=== PATIENT | male | born 1950 | race Caucasian/White ===

== ENCOUNTER 2017-02-07 08:17 | Day surgery (SDC) | payer MEDICARE, BC ==
[~2017-02-07] VITALS: Ht 190.5 cm; Wt 82.5 kg
[~2017-02-07 08:17] MED LIST: BUPR1FIL5 SL; CYAN10002 IJ; CYAN1TAB2 PO; OXYCODONE HCL PO
[2017-02-07 08:50] VITALS: BP 130/73
[2017-02-07] MEDS ORDERED: SODIUM CHLORIDE 0.9% 1,000 ML IV SCH (08:52)
[2017-02-07] MEDS ORDERED: FLUMAZENIL 0.1 MG/1 ML, 5ML ONE (09:02)
[2017-02-07] MEDS ORDERED: FENTANYL PF 100 MCG/2ML ONE (09:02)
[2017-02-07] MEDS ORDERED: NALOXONE 1 MG/ML, 2ML ONE (09:02)
[2017-02-07] MEDS ORDERED: MIDAZOLAM 1 MG/ML, 5ML ONE (09:02)
[2017-02-07] MEDS ORDERED: LIDOCAINE 1%, 20ML ONE (09:24)
[2017-02-07 10:23] LABS: DIFF TOTAL CELLS COUNTED 100 CELL DIFF
[2017-02-07 10:27] LABS: ANISOCYTOSIS 1+; VERIFY COUNTS? YES
[2017-02-07 10:28] LABS: POIKILOCYTOSIS 1+
== END 2017-02-07 11:10 ==
LOC: OUT 08:17
PROVIDERS: ATTEND Internal Medicine Hematology & Oncology
DX: D61.818 Other pancytopenia (principal)
CPT/HCPCS: 36415; 38221; 77012; 85025; 85097; 88237; 88264; 88280; 88305; 88311; 88313; 99156; 99157; G0364; J2250; J3010; J3490; J7030; J2310

== ENCOUNTER → 2017-02-27 | Outpatient (CLI) | payer MEDICARE, BC ==
[2017-02-27 11:38] LABS: DIFF TOTAL CELLS COUNTED 100 CELL DIFF
[2017-02-27 11:48] LABS: ANISOCYTOSIS 1+; POIKILOCYTOSIS 1+; POLYCHROMASIA 1+; VERIFY COUNTS? YES
== END | disposition home or self-care (01) ==
LOC: LAB 10:51
PROVIDERS: ATTEND Internal Medicine Hematology & Oncology
DX: D51.1 Vitamin B12 deficiency anemia due to selective vitamin B12 malabsorption with proteinuria (principal); C79.51 Secondary malignant neoplasm of bone; D40.0 Neoplasm of uncertain behavior of prostate; R53.0 Neoplastic (malignant) related fatigue; C84.60 Anaplastic large cell lymphoma, ALK-positive, unspecified site; D61.9 Aplastic anemia, unspecified
CPT/HCPCS: 36415; 85025

== ENCOUNTER 2017-05-25 09:38 | Day surgery (SDC) | payer MEDICARE, BC ==
[~2017-05-25] VITALS: Ht 190.5 cm; Wt 79.0 kg
[2017-05-25] MEDS ORDERED: SODIUM CHLORIDE 0.9% 1,000 ML IV SCH (10:10)
[2017-05-25 10:14] VITALS: BP 118/74
[2017-05-25] MEDS ORDERED: NALOXONE 1 MG/ML, 2ML ONE (10:34)
[2017-05-25] MEDS ORDERED: FLUMAZENIL 0.1 MG/1 ML, 5ML ONE (10:34)
[2017-05-25] MEDS ORDERED: MIDAZOLAM 1 MG/ML, 5ML ONE ×2 (10:34→11:54)
[2017-05-25] MEDS ORDERED: FENTANYL PF 100 MCG/2ML ONE ×2 (10:34→11:55)
[2017-05-25] MEDS ORDERED: LIDOCAINE 1%, 20ML ONE (10:34)
[2017-05-25 11:20] LABS: HEMATOCRIT 23.9 % (39.2-51.8); WHITE BLOOD COUNT 2.1 x10^3/uL (3.4-10)
[2017-05-25 11:53] LABS: DIFF TOTAL CELLS COUNTED 100 CELL DIFF
[2017-05-25 11:59] LABS: VERIFY COUNTS? YES
[2017-05-25 12:00] LABS: ANISOCYTOSIS 1+; POLYCHROMASIA 1+
[2017-05-25 12:01] LABS: POIKILOCYTOSIS 1+
== END 2017-05-25 12:30 ==
LOC: OUT 09:38
PROVIDERS: ATTEND Internal Medicine Hematology & Oncology
DX: C84.60 Anaplastic large cell lymphoma, ALK-positive, unspecified site (principal); D50.8 Other iron deficiency anemias; D69.6 Thrombocytopenia, unspecified; Z87.39 Personal history of other diseases of the musculoskeletal system and connective tissue; Z87.891 Personal history of nicotine dependence
CPT/HCPCS: 36415; 38221; 77012; 85025; 85097; 88237; 88264; 88280; 88305; 88311; 88313; 99156; 99157; G0364; J2250; J3010; J3490; J7030; J2310

== ENCOUNTER 2017-06-03 22:43 | Emergency (ER) | payer MEDICARE, BC ==
[~2017-06-03] VITALS: Ht 190.5 cm; Wt 81.9 kg
[2017-06-03] MEDS ORDERED: LEVO1CAP9 PO (23:46)
[2017-06-04] MEDS ORDERED: SODIUM CHLORIDE FLUSH 10ML SYR IVF ONE
[2017-06-04 00:10] LABS: ASPARTATE AMINO TRANSFERASE 21 U/L (15-37); BLOOD UREA NITROGEN 20 mg/dL (7-18)
[2017-06-04 00:33] LABS: HEMATOCRIT 25.2 % (39.2-51.8); HEMOGLOBIN 8.4 g/dL (13.7-18.0)
[2017-06-04 00:34] LABS: WHITE BLOOD COUNT 1.6 x10^3/uL (3.4-10)
[2017-06-04 00:35] LABS: DIFF TOTAL CELLS COUNTED 100 CELL DIFF
[2017-06-04 00:41] LABS: ANISOCYTOSIS 1+
[2017-06-04 00:42] LABS: LARGE PLATELETS 1+; POLYCHROMASIA 1+
[2017-06-04 00:43] LABS: VERIFY COUNTS? YES
[2017-06-04 01:08] VITALS: BP 124/69
[2017-06-04] MEDS ORDERED: CEFTRIAXONE PMX 1GM/50ML 50 ML ONE (01:41)
[2017-06-04] MEDS ORDERED: MORPHINE SULFATE 4 MG/ML, 1ML IVPush PRN (02:00)
[2017-06-04] MEDS ORDERED: CEFTRIAXONE PMX 1GM/50ML 50 ML IV ONE (02:00)
[2017-06-04] MEDS ORDERED: MORPHINE SULFATE 4 MG/ML, 1ML ONE (02:03)
== END 2017-06-04 02:22 | disposition home or self-care (01) ==
LOC: ED 23:16
DX: D72.829 Elevated white blood cell count, unspecified (principal); D61.9 Aplastic anemia, unspecified; M79.601 Pain in right arm; M79.661 Pain in right lower leg
CPT/HCPCS: 36415; 71010; 80053; 81003; 83605; 84145; 85025; 87040; 96365; 96375; 99285; J0696

== ENCOUNTER 2017-07-03 07:49 | Day surgery (SDC) | payer MEDICARE, BC ==
[~2017-07-03] VITALS: Ht 190.5 cm; Wt 76.6 kg
[~2017-07-03 07:49] MED LIST changes: +LEVO1CAP9 PO
[2017-07-03] MEDS ORDERED: SODIUM CHLORIDE 0.9% 1,000 ML IV SCH (08:24)
[2017-07-03 08:25] VITALS: BP 151/88
[2017-07-03 09:02] LABS: HEMATOCRIT 24.9 % (39.2-51.8); HEMOGLOBIN 8.9 g/dL (13.7-18.0)
[2017-07-03 09:10] LABS: WHITE BLOOD COUNT 1.4 x10^3/uL (3.4-10)
[2017-07-03] MEDS ORDERED: FENTANYL PF 100 MCG/2ML ONE ×2 (09:10)
[2017-07-03] MEDS ORDERED: MIDAZOLAM 1 MG/ML, 5ML ONE (09:10)
[2017-07-03] MEDS ORDERED: NALOXONE 1 MG/ML, 2ML ONE (09:11)
[2017-07-03] MEDS ORDERED: FLUMAZENIL 0.1 MG/1 ML, 5ML ONE (09:11)
[2017-07-03 09:15] LABS: DIFF TOTAL CELLS COUNTED 100 CELL DIFF
[2017-07-03 09:19] LABS: ANISOCYTOSIS 1+; POIKILOCYTOSIS 1+; VERIFY COUNTS? YES
[2017-07-03 09:20] LABS: POLYCHROMASIA 1+
[2017-07-03 09:21] LABS: OVALOCYTES 1+
== END 2017-07-03 10:26 ==
LOC: OUT 07:49
PROVIDERS: ATTEND Internal Medicine Hematology & Oncology
DX: C84.60 Anaplastic large cell lymphoma, ALK-positive, unspecified site (principal); Z98.890 Other specified postprocedural states
CPT/HCPCS: 36415; 36569; 76937; 77001; 85025; C1751; J3010; J7030; J2250; J2310

== ENCOUNTER 2017-08-05 16:38 | Inpatient (IN) | payer MEDICARE, BC ==
[~2017-08-05] VITALS: Ht 190.5 cm; Wt 77.6 kg
[~2017-08-05 16:38] MED LIST changes: +ACYC-57 PO
[2017-08-05] MEDS ORDERED: MORPHINE SULFATE 4 MG/ML, 1ML IVPush PRN (17:30)
[2017-08-05] MEDS ORDERED: SODIUM CHLORIDE 0.9% 1,000ML IVBOLUS ONE (17:30)
[2017-08-05] MEDS ORDERED: SODIUM CHLORIDE FLUSH 10ML SYR IVF ONE (17:30)
[2017-08-05] MEDS ORDERED: morphine SULFATE 10 MG/ML, 1ML ONE (17:40)
[2017-08-05 17:56] LABS: ASPARTATE AMINO TRANSFERASE 26 U/L (15-37); BLOOD UREA NITROGEN 24 mg/dL (7-18)
[2017-08-05 18:05] LABS: DIFF TOTAL CELLS COUNTED 100 CELL DIFF
[2017-08-05 18:06] LABS: WHITE BLOOD COUNT 0.4 x10^3/uL (3.4-10)
[2017-08-05 18:07] LABS: HEMATOCRIT 17.3 % (39.2-51.8)
[2017-08-05 18:27] LABS: VERIFY COUNTS? YES
[2017-08-05 18:28] LABS: ANISOCYTOSIS 1+; POLYCHROMASIA 1+; ROULEAUX 2+
[2017-08-05 18:31] LABS: GIANT PLATELETS 1+
[2017-08-05] MEDS ORDERED: CEFTRIAXONE PMX 1GM/50ML 50 ML ONE (18:36)
[2017-08-05] MEDS ORDERED: VANCOMYCIN PER PHARMACY MC PRN (19:00)
[2017-08-05] MEDS ORDERED: CEFTRIAXONE PMX 1GM/50ML 50 ML IV ONE (19:00)
[2017-08-05] MEDS ORDERED: VANCOMYCIN 1,600 MG in SODIUM CHLORIDE 0.9% 250 ML IV ONE (19:30)
[2017-08-05] MEDS ORDERED: DIPHENHYDRAMINE 50 MG CAPSULE PO PRN (20:00)
[2017-08-05] MEDS ORDERED: PHARMACY MAY ADJ FOR RENAL FX MC SCH (20:00)
[2017-08-05] MEDS ORDERED: VANCOMYCIN PER PHARMACY MC SCH (20:00)
[2017-08-05] MEDS ORDERED: MEPERIDINE/PF 25MG/0.5ML IVPush PRN (20:00)
[2017-08-05] MEDS ORDERED: ACETAMINOPHEN 325 MG TABLET PO PRN (20:00)
[2017-08-05 20:10] VITALS: BP 120/67
[2017-08-05 20:28] VITALS: BP 120/67
[2017-08-05] MEDS ORDERED: PHARMACOKINETIC MONITORING MC PRN (21:00)
[2017-08-05] MEDS ORDERED: PHARMACOKINETIC CONSULTATION MC ONE (21:00)
[2017-08-05] MEDS: VANCOMYCIN 1,600 MG in SODIUM CHLORIDE 0.9% 250 ML IV SCH (21:03)
[2017-08-05] MEDS: ACYCLOVIR 800 MG TABLET PO SCH (22:51)
[2017-08-05] MEDS: PIPERACILLIN/TAZO/PMX 4.5GM 100 ML IVPB SCH (22:51)
[2017-08-06] VITALS (14 sets, daily range): BP systolic 89–122; BP diastolic 50–65
[2017-08-06] MEDS ORDERED: DIPHENHYDRAMINE 25 MG CAPSULE ONE (01:08)
[2017-08-06 02:54] LABS: RAPID INFLUENZA A Negative (Negative); RAPID INFLUENZA B Negative (Negative)
[2017-08-06] MEDS: OXYcodone IR 5MG TABLET PO PRN ×3 (04:14→11:35)
[2017-08-06] MEDS: PIPERACILLIN/TAZO/PMX 4.5GM 100 ML IVPB SCH ×4 (04:47→20:00)
[2017-08-06] MEDS: MULTIVITS,STRESS FORMULA 1 TABLET PO SCH (08:32)
[2017-08-06] MEDS: ACYCLOVIR 800 MG TABLET PO SCH ×2 (08:33→20:58)
[2017-08-06] MEDS ORDERED: FOLIC ACID 1 MG TABLET PO SCH (09:00)
[2017-08-06] MEDS ORDERED: TBO-FILGRASTIM 300 MCG/0.5 ML SQ SCH (09:00)
[2017-08-06 11:07] LABS: HEMOGLOBIN 7.8 g/dL (13.7-18.0)
[2017-08-06 11:10] LABS: ASPARTATE AMINO TRANSFERASE 30 U/L (15-37); BLOOD UREA NITROGEN 15 mg/dL (7-18)
[2017-08-06 11:12] LABS: HEMATOCRIT 22.4 % (39.2-51.8); WHITE BLOOD COUNT 0.3 x10^3/uL (3.4-10)
[2017-08-06 11:28] LABS: DIFF TOTAL CELLS COUNTED 50 CELL DIFFERENTIAL
[2017-08-06 11:29] LABS: ANISOCYTOSIS 1+; VERIFY COUNTS? YES
[2017-08-06 11:30] LABS: OVALOCYTES 1+
[2017-08-06] MEDS ORDERED: morphine SULFATE 10 MG/ML, 1ML ONE ×2 (12:45→16:03)
[2017-08-06] MEDS: MORPHINE SULFATE 4 MG/ML, 1ML IVPush PRN ×2 (12:49→16:05)
[2017-08-06] MEDS: SODIUM CHLORIDE 0.9% 1,000 ML IV SCH ×2 (12:54→13:00)
[2017-08-06] MEDS: ONDANSETRON 2MG/ML, 2ML IVPush PRN (13:52)
[2017-08-06] MEDS: ACETAMINOPHEN 325 MG TABLET PO PRN (16:01)
[2017-08-06] MEDS ORDERED: DIPHENHYDRAMINE 25 MG CAPSULE PO ONE (20:00)
[2017-08-06] MEDS: VANCOMYCIN 1,600 MG in SODIUM CHLORIDE 0.9% 250 ML IV SCH (21:46)
[2017-08-07] VITALS (10 sets, daily range): BP systolic 108–149; BP diastolic 58–77
[2017-08-07] MEDS ORDERED: morphine SULFATE 10 MG/ML, 1ML ONE ×4 (01:21→21:20)
[2017-08-07] MEDS: PIPERACILLIN/TAZO/PMX 4.5GM 100 ML IVPB SCH ×4 (01:32→20:18)
[2017-08-07] MEDS: SODIUM CHLORIDE 0.9% 1,000 ML IV SCH ×4 (01:32→16:57)
[2017-08-07] MEDS: MORPHINE SULFATE 4 MG/ML, 1ML IVPush PRN ×4 (01:32→21:23)
[2017-08-07 05:29] LABS: BLOOD UREA NITROGEN 13 mg/dL (7-18)
[2017-08-07 05:33] LABS: ASPARTATE AMINO TRANSFERASE 14 U/L (15-37)
[2017-08-07 05:58] LABS: HEMATOCRIT 20.1 % (39.2-51.8); HEMOGLOBIN 6.9 g/dL (13.7-18.0); WHITE BLOOD COUNT 0.5 x10^3/uL (3.4-10)
[2017-08-07 06:16] LABS: DIFF TOTAL CELLS COUNTED 50 CELL DIFFERENTIAL; VERIFY COUNTS? YES
[2017-08-07 06:17] LABS: ANISOCYTOSIS 1+; OVALOCYTES 1+
[2017-08-07] MEDS: ACYCLOVIR 800 MG TABLET PO SCH ×2 (07:51→20:18)
[2017-08-07] MEDS: MULTIVITS,STRESS FORMULA 1 TABLET PO SCH (07:51)
[2017-08-07] MEDS: OXYcodone IR 5MG TABLET PO PRN ×2 (10:45→16:57)
[2017-08-07] MEDS: ONDANSETRON 2MG/ML, 2ML IVPush PRN ×2 (13:57→17:50)
[2017-08-07] MEDS: VANCOMYCIN 1,600 MG in SODIUM CHLORIDE 0.9% 250 ML IV SCH (21:13)
[2017-08-07] MEDS: ACETAMINOPHEN 325 MG TABLET PO PRN (21:13)
[2017-08-08 01:03] VITALS: BP 126/74
[2017-08-08] MEDS: PIPERACILLIN/TAZO/PMX 4.5GM 100 ML IVPB SCH ×2 (02:13→07:54)
[2017-08-08] MEDS: SODIUM CHLORIDE 0.9% 1,000 ML IV SCH ×2 (05:20→14:02)
[2017-08-08] MEDS ORDERED: morphine SULFATE 10 MG/ML, 1ML ONE ×4 (05:59→20:46)
[2017-08-08] MEDS: MORPHINE SULFATE 4 MG/ML, 1ML IVPush PRN ×4 (06:02→20:58)
[2017-08-08 06:06] LABS: ASPARTATE AMINO TRANSFERASE 13 U/L (15-37); BLOOD UREA NITROGEN 11 mg/dL (7-18)
[2017-08-08 06:20] LABS: HEMATOCRIT 25.2 % (39.2-51.8); HEMOGLOBIN 8.7 g/dL (13.7-18.0)
[2017-08-08 06:22] LABS: WHITE BLOOD COUNT 0.7 x10^3/uL (3.4-10)
[2017-08-08 06:23] LABS: DIFF TOTAL CELLS COUNTED 100 CELL DIFF
[2017-08-08 06:27] LABS: ANISOCYTOSIS 1+; OVALOCYTES 1+; VERIFY COUNTS? YES
[2017-08-08 07:00] VITALS: BP 122/69
[2017-08-08] MEDS ORDERED: ACETAMINOPHEN 325 MG TABLET PO ONE (07:30)
[2017-08-08] MEDS: MULTIVITS,STRESS FORMULA 1 TABLET PO SCH (07:54)
[2017-08-08] MEDS: ACYCLOVIR 800 MG TABLET PO SCH ×2 (07:54→20:57)
[2017-08-08] MEDS: OXYcodone IR 5MG TABLET PO PRN (08:04)
[2017-08-08] MEDS: PIPERACILLIN/TAZO/PMX 4.5GM 100 ML IV SCH ×2 (09:30→16:49)
[2017-08-08 14:19] VITALS: BP 122/72
[2017-08-08] MEDS: ONDANSETRON 2MG/ML, 2ML IVPush PRN (18:20)
[2017-08-08 18:56] VITALS: BP 129/76
[2017-08-08] MEDS: ACETAMINOPHEN 325 MG TABLET PO PRN (20:57)
[2017-08-08] MEDS: VANCOMYCIN 1,600 MG in SODIUM CHLORIDE 0.9% 250 ML IV SCH (20:57)
[2017-08-09 01:11] VITALS: BP 126/73
[2017-08-09] MEDS: SODIUM CHLORIDE 0.9% 1,000 ML IV SCH ×2 (01:12→11:00)
[2017-08-09] MEDS: PIPERACILLIN/TAZO/PMX 4.5GM 100 ML IV SCH ×2 (01:13→08:59)
[2017-08-09] MEDS ORDERED: morphine SULFATE 10 MG/ML, 1ML ONE ×2 (01:24→07:10)
[2017-08-09] MEDS: MORPHINE SULFATE 4 MG/ML, 1ML IVPush PRN ×2 (01:26→07:15)
[2017-08-09] MEDS: OXYcodone IR 5MG TABLET PO PRN (05:07)
[2017-08-09 06:06] LABS: ASPARTATE AMINO TRANSFERASE 14 U/L (15-37); BLOOD UREA NITROGEN 9 mg/dL (7-18)
[2017-08-09 06:10] LABS: HEMOGLOBIN 7.9 g/dL (13.7-18.0)
[2017-08-09 06:11] LABS: HEMATOCRIT 22.9 % (39.2-51.8); WHITE BLOOD COUNT 0.5 x10^3/uL (3.4-10)
[2017-08-09 07:27] VITALS: BP 128/73
[2017-08-09] MEDS: MULTIVITS,STRESS FORMULA 1 TABLET PO SCH (08:59)
[2017-08-09] MEDS: ACYCLOVIR 800 MG TABLET PO SCH (08:59)
[2017-08-09] MEDS: ONDANSETRON 2MG/ML, 2ML IVPush PRN (09:00)
== END 2017-08-09 12:40 | disposition home or self-care (01) | DRG 871 ==
LOC: SUATTDRO 19:17 → ED 19:22 → EDIP 19:40 → 3NW 20:05
PROVIDERS: ADMIT Hospitalist; ATTEND Hospitalist
PROC: 30233N1 Transfusion of Nonautologous Red Blood Cells into Peripheral Vein, Percutaneous Approach (ICD-10-PCS; principal; 2017-08-06)
DX: A41.9 Sepsis, unspecified organism (principal); D61.810 Antineoplastic chemotherapy induced pancytopenia; E44.0 Moderate protein-calorie malnutrition; M48.54XA Collapsed vertebra, not elsewhere classified, thoracic region, initial encounter for fracture; R17 Unspecified jaundice; J98.11 Atelectasis; R50.81 Fever presenting with conditions classified elsewhere; D46.9 Myelodysplastic syndrome, unspecified; D63.8 Anemia in other chronic diseases classified elsewhere; G89.4 Chronic pain syndrome; K22.70 Barrett's esophagus without dysplasia; M40.209 Unspecified kyphosis, site unspecified; M79.7 Fibromyalgia; M81.0 Age-related osteoporosis without current pathological fracture; R53.82 Chronic fatigue, unspecified; Z80.0 Family history of malignant neoplasm of digestive organs; Z80.1 Family history of malignant neoplasm of trachea, bronchus and lung; Z82.3 Family history of stroke; Z87.11 Personal history of peptic ulcer disease; Z68.21 Body mass index [BMI] 21.0-21.9, adult; Z91.010 Allergy to peanuts; Z87.891 Personal history of nicotine dependence
CPT/HCPCS: 36415; 36430; 71010; 72128; 80053; 81003; 83605; 84145; 85025; 85610; 85651; 85730; 86140; 86850; 86870; 86900; 86902; 86922; 86923; 87040; 87400; 93005; 96374; J0696; J2405; J2543; J3370; J1447; J7030; J7050; P9040; Q0163

== ENCOUNTER → 2017-08-13 | Outpatient (CLI) | payer MEDICARE, BC | END | disposition home or self-care (01) | LOC: CFH 14:22 | PROVIDERS: ATTEND Internal Medicine Hematology & Oncology | DX: G31.9 Degenerative disease of nervous system, unspecified (principal); D40.0 Neoplasm of uncertain behavior of prostate | CPT/HCPCS: 70450 ==

== ENCOUNTER 2017-08-24 13:24 | Emergency (ER) | payer MEDICARE, BC ==
[2017-08-24] MEDS ORDERED: SODIUM CHLORIDE 0.9% 1,000 ML IV ONE (13:33)
[2017-08-24] MEDS ORDERED: morphine SULFATE 10 MG/ML, 1ML ONE (13:45)
[2017-08-24] MEDS ORDERED: ONDANSETRON 2MG/ML, 2ML ONE (13:46)
[2017-08-24] MEDS ORDERED: ONDANSETRON 2MG/ML, 2ML IVPush ONE (14:00)
[2017-08-24] MEDS ORDERED: MORPHINE SULFATE 4 MG/ML, 1ML IVPush PRN (14:00)
[2017-08-24] MEDS ORDERED: SODIUM CHLORIDE FLUSH 10ML SYR IVF ONE (14:00)
[2017-08-24 14:05] LABS: ASPARTATE AMINO TRANSFERASE 25 U/L (15-37); BLOOD UREA NITROGEN 18 mg/dL (7-18)
[2017-08-24 14:30] LABS: HEMOGLOBIN 7.3 g/dL (13.7-18.0)
[2017-08-24 14:32] LABS: HEMATOCRIT 20.8 % (39.2-51.8); WHITE BLOOD COUNT 0.6 x10^3/uL (3.4-10)
[2017-08-24 14:35] LABS: DIFF TOTAL CELLS COUNTED 100 CELL DIFF
[2017-08-24 14:40] LABS: ANISOCYTOSIS 1+
[2017-08-24 14:41] LABS: POLYCHROMASIA 1+; VERIFY COUNTS? YES
[2017-08-24 16:54] VITALS: BP 96/55
== END 2017-08-24 16:57 | disposition home or self-care (01) ==
LOC: ED 15:43
DX: D61.818 Other pancytopenia (principal); D46.9 Myelodysplastic syndrome, unspecified; Z88.1 Allergy status to other antibiotic agents; Z87.891 Personal history of nicotine dependence
CPT/HCPCS: 36415; 71010; 80053; 81003; 83605; 85025; 87040; 93005; 96361; 96374; 96375; 99285; J2405; J7030

== ENCOUNTER 2017-10-03 08:22 | Day surgery (SDC) | payer MEDICARE, BC ==
[~2017-10-03] VITALS: Ht 190.5 cm; Wt 73.0 kg
[~2017-10-03 08:22] MED LIST changes: +FENT1PAT9 TD
[2017-10-03 08:50] VITALS: BP 164/91
[2017-10-03] MEDS ORDERED: LIDOCAINE 2%, 20ML ONE (09:12)
[2017-10-03 09:41] LABS: MEAN CORPUSCULAR HEMOGLOBIN 29.7 pg (27.5-34.5); MEAN CORPUSCULAR HGB CONC 34.8 g/dL (33.2-36.2); MEAN CORPUSCULAR VOLUME 85.5 fL (81-97); MEAN PLATELET VOLUME 7.7 fL (7.4-10.4); RED BLOOD COUNT 2.85 x10^6/uL (4.38-5.82); RED CELL DISTRIBUTION WIDTH 15.1 % (9.4-14.8)
[2017-10-03] MEDS ORDERED: FLUMAZENIL 0.1 MG/1 ML, 5ML ONE (09:44)
[2017-10-03] MEDS ORDERED: MIDAZOLAM 1 MG/ML, 5ML ONE (09:44)
[2017-10-03] MEDS ORDERED: FENTANYL PF 100 MCG/2ML ONE (09:44)
[2017-10-03] MEDS ORDERED: NALOXONE 1 MG/ML, 2ML ONE (09:44)
[2017-10-03 09:57] LABS: MD YES
[2017-10-03 09:59] LABS: <PLATELET ESTIMATE> DECREASED; <PLT MORPHOLOGY> QNS FOR PLT MORPH; ANISOCYTOSIS 1+; BAND#(MANUAL) 0.01 x10^3/uL; BANDS%(MANUAL) 2 % (0-7); EOS#(MANUAL) 0.01 x10^3/uL (0.0-0.4); EOS% (MANUAL) 2 % (1-7); LYMPH#(MANUAL) 0.56 x10^3/uL (1-3.4); LYMPHS% (MANUAL) 94 % (22-44); SEG#(MANUAL) 0.01 x10^3/uL (1.8-6.8); SEGS% (MANUAL) 2 % (42-75)
[2017-10-03 10:10] LABS: PLATELET COUNT 8 x10^3/uL (130-400)
== END 2017-10-03 12:05 ==
LOC: OUT 08:22
PROVIDERS: ATTEND Internal Medicine Hematology & Oncology
DX: D46.9 Myelodysplastic syndrome, unspecified (principal)
CPT/HCPCS: 36415; 38222; 77012; 85025; 85060; 85097; 88184; 88185; 88237; 88264; 88280; 88305; 88311; 88313; 88374; 99156; J2250; J3010; J3490; 99157; J2310

== ENCOUNTER 2017-12-24 13:35 | Emergency (ER) | payer MEDICARE, BC ==
[~2017-12-24] VITALS: Ht 190.5 cm; Wt 75.0 kg
[2017-12-24] MEDS ORDERED: FAMOTIDINE 20 MG/2 ML ONE (14:12)
[2017-12-24] MEDS ORDERED: FAMOTIDINE 20 MG/2 ML IVPush ONE (14:30)
[2017-12-24 14:58] VITALS: BP 125/72
== END 2017-12-24 15:01 | disposition home or self-care (01) ==
LOC: ED 14:55
DX: T78.49XA Other allergy, initial encounter (principal); D61.818 Other pancytopenia; D46.9 Myelodysplastic syndrome, unspecified; X58.XXXA Exposure to other specified factors, initial encounter
CPT/HCPCS: 96374; S0028

== ENCOUNTER → 2018-01-28 | Outpatient (CLI) | payer MEDICARE, BC | END | disposition home or self-care (01) | LOC: CVU 10:38 | PROVIDERS: ATTEND Internal Medicine Hematology & Oncology | DX: D46.9 Myelodysplastic syndrome, unspecified (principal); D51.1 Vitamin B12 deficiency anemia due to selective vitamin B12 malabsorption with proteinuria; D40.0 Neoplasm of uncertain behavior of prostate; I51.7 Cardiomegaly | CPT/HCPCS: 93306 ==

== ENCOUNTER 2018-01-29 07:43 | Day surgery (SDC) | payer MEDICARE, BC ==
[~2018-01-29] VITALS: Ht 190.5 cm; Wt 75.9 kg
[2018-01-29] MEDS ORDERED: SODIUM CHLORIDE 0.9% 1,000 ML IV SCH (11:25)
[2018-01-29 11:32] VITALS: BP 149/75
[2018-01-29] MEDS ORDERED: PLEASE ENTER HEIGHT AND WEIGHT MC SCH (12:00)
[2018-01-29 12:05] LABS: MEAN CORPUSCULAR HEMOGLOBIN 31.2 pg (27.5-34.5); MEAN CORPUSCULAR HGB CONC 35.1 g/dL (33.2-36.2); MEAN CORPUSCULAR VOLUME 88.8 fL (81-97); MEAN PLATELET VOLUME 8.5 fL (7.4-10.4); RED BLOOD COUNT 2.84 x10^6/uL (4.38-5.82); RED CELL DISTRIBUTION WIDTH 14.8 % (9.4-14.8)
[2018-01-29] MEDS ORDERED: FENTANYL PF 100 MCG/2ML ONE (12:19)
[2018-01-29] MEDS ORDERED: MIDAZOLAM 1 MG/ML, 5ML ONE (12:19)
[2018-01-29] MEDS ORDERED: FLUMAZENIL 0.1 MG/1 ML, 5ML ONE (12:19)
[2018-01-29] MEDS ORDERED: NALOXONE 1 MG/ML, 2ML ONE (12:20)
[2018-01-29 13:10] LABS: PLATELET COUNT 7 x10^3/uL (130-400)
[2018-01-29 13:12] LABS: MD YES
[2018-01-29 13:15] LABS: <PLATELET ESTIMATE> DECREASED; <PLT MORPHOLOGY> QNS FOR PLT MORPH; ANISOCYTOSIS 1+; BAND#(MANUAL) 0.12 x10^3/uL; BANDS%(MANUAL) 8 % (0-7); EOS#(MANUAL) 0.03 x10^3/uL (0.0-0.4); EOS% (MANUAL) 2 % (1-7); LYMPH#(MANUAL) 0.84 x10^3/uL (1-3.4); LYMPHS% (MANUAL) 56 % (22-44); MONOS#(MANUAL) 0.03 x10^3/uL (0.3-2.7); MONOS% (MANUAL) 2 % (2-9); SEG#(MANUAL) 0.48 x10^3/uL (1.8-6.8); SEGS% (MANUAL) 32 % (42-75)
== END 2018-01-29 14:55 ==
LOC: RAD 07:43
PROVIDERS: ATTEND Internal Medicine Hematology & Oncology
DX: D61.818 Other pancytopenia (principal); Z88.7 Allergy status to serum and vaccine; Z91.010 Allergy to peanuts
CPT/HCPCS: 36415; 38222; 77012; 85025; 85060; 85097; 88237; 88264; 88280; 88305; 88311; 88313; 99156; J2250; J3010; J7030; 88341; 88360; J2310

== ENCOUNTER → 2018-02-04 | Outpatient (CLI) | payer MEDICARE, BC | END | disposition home or self-care (01) | LOC: CARD 13:54 | PROVIDERS: ATTEND Family Medicine | DX: Z01.818 Encounter for other preprocedural examination (principal); R06.02 Shortness of breath; D46.9 Myelodysplastic syndrome, unspecified; Z79.899 Other long term (current) drug therapy | CPT/HCPCS: 94060; 94726; 94729 ==

== ENCOUNTER → 2018-02-05 | Outpatient (CLI) | payer MEDICARE, BC ==
[~2018-02-05] MED LIST changes: +REGADENOSON 0.4 MG/5 ML SYRINGE ONE
== END ==
LOC: CFH 12:31
PROVIDERS: ATTEND Specialist
DX: Z01.818 Encounter for other preprocedural examination (principal); D46.9 Myelodysplastic syndrome, unspecified; Z79.899 Other long term (current) drug therapy
CPT/HCPCS: 78452; 93017; A9502; J2785

== ENCOUNTER → 2018-04-22 | Outpatient (CLI) | payer MEDICARE, BC ==
[~2018-04-22] MED LIST changes: +OMNIPAQUE 350 MG/ML, 100ML BOTTLE ONE; -REGADENOSON 0.4 MG/5 ML SYRINGE ONE
== END | disposition home or self-care (01) ==
LOC: RAD 11:13
PROVIDERS: ATTEND Specialist
DX: Z01.818 Encounter for other preprocedural examination (principal); D61.9 Aplastic anemia, unspecified; M81.0 Age-related osteoporosis without current pathological fracture; R16.1 Splenomegaly, not elsewhere classified; R91.1 Solitary pulmonary nodule
CPT/HCPCS: 70487; 71260; 74177; Q9967

== ENCOUNTER 2018-06-21 10:56 | Inpatient (IN) | payer MEDICARE, BC ==
[~2018-06-21] VITALS: Ht 188 cm; Wt 72.3 kg
[~2018-06-21 10:56] MED LIST changes: +ACYC-114 PO; +AMLO10TA6 PO; +BUTA1CAP30 PO; +CHOL100012 PO; +CYCL100C PO; +FENT1PAT76 TP; +GABA300C10 PO; +HYDR2TAB29 PO; +ISAV186C PO; +MAGN400T26 PO; +MYCO500T3 PO; -OMNIPAQUE 350 MG/ML, 100ML BOTTLE ONE; +PANT40TA3 PO; +PRED10TA PO; +PROC10TA78 PO; +SULF1TAB24 PO; +URSO300C27 PO; +[UNRECOGNIZED DRUG - CODE] PO
[2018-06-21] MEDS ORDERED: SODIUM CHLORIDE 0.9% 1,000ML IVBOLUS ONE (12:30)
[2018-06-21] MEDS ORDERED: MORPHINE SULFATE 4 MG/ML, 1ML IVPush PRN (12:30)
[2018-06-21] MEDS ORDERED: SODIUM CHLORIDE FLUSH 10ML SYR IVF ONE (12:30)
[2018-06-21] MEDS ORDERED: ACETAMINOPHEN 325 MG TABLET PO ONE (12:30)
[2018-06-21] MEDS ORDERED: MORPHINE SULFATE 4 MG/ML, 1ML ONE (12:34)
[2018-06-21] MEDS ORDERED: ACETAMINOPHEN 325 MG TABLET ONE (12:34)
[2018-06-21 13:00] LABS: MICROSCOPIC INDICATED
[2018-06-21 13:01] LABS: CULTURE INDICATED? YES
[2018-06-21 13:04] LABS: ALBUMIN 3.3 g/dL (3.4-5.0); ANION GAP 8 mmol/L (5-15); CALCIUM 8.4 mg/dL (8.5-10.1); CHLORIDE 103 mmol/L (98-107); CREATININE 1.47 mg/dL (0.7-1.3)
[2018-06-21 13:09] LABS: ALANINE AMINOTRANSFERASE 41 U/L (12-78); ALKALINE PHOSPHATASE 243 U/L (45-117); BILIRUBIN,TOTAL 2.7 mg/dL (0.2-1.0); TOTAL PROTEIN 5.9 g/dL (6.4-8.2)
[2018-06-21 13:10] LABS: MEAN CORPUSCULAR HEMOGLOBIN 33.5 pg (27.5-34.5); MEAN CORPUSCULAR VOLUME 98.3 fL (81-97); RED BLOOD COUNT 3.04 x10^6/uL (4.38-5.82)
[2018-06-21 13:22] LABS: MEAN PLATELET VOLUME 6.1 fL (7.4-10.4); PLATELET COUNT 137 x10^3/uL (130-400); RED CELL DISTRIBUTION WIDTH 23.9 % (9.4-14.8)
[2018-06-21 13:25] LABS: BASOPHILS # (AUTO) 0.02 x10^3/uL (0-0.1); BASOPHILS % (AUTO) 0 % (0-1); EOSINOPHILS # (AUTO) 0.02 x10^3/uL (0-0.4); EOSINOPHILS % (AUTO) 0 % (1-7); LYMPHOCYTES # (AUTO) 0.28 x10^3/uL (1-3.4); LYMPHOCYTES % (AUTO) 4 % (22-44); MD SCAN; MONOCYTES # (AUTO) 0.22 x10^3/uL (0.2-0.8); MONOCYTES % (AUTO) 3 % (2-9); NEUTROPHILS # (AUTO) 6.09 x10^3/uL (1.8-6.8); NEUTROPHILS % (AUTO) 92 % (42-75)
[2018-06-21] MEDS ORDERED: METRONIDAZOLE PMX 500MG/100ML 100 ML ONE (13:30)
[2018-06-21] MEDS ORDERED: PIPERACILLIN/TAZO/PMX 3.375GM 50 ML IVPB ONE (13:30)
[2018-06-21] MEDS ORDERED: METRONIDAZOLE PMX 500MG/100ML 100 ML IV ONE (13:30)
[2018-06-21] MEDS ORDERED: PIPERACILLIN/TAZO/PMX 3.375GM 50 ML ONE (13:30)
[2018-06-21] MEDS ORDERED: hydrALAzine 20 MG/ML, 1ML IVPush PRN (14:00)
[2018-06-21] MEDS ORDERED: LACTATED RINGERS 1,000 ML IV SCH (14:00)
[2018-06-21] MEDS ORDERED: POLYETHYLENE GLYCOL 17 GM PACKET PO PRN (14:00)
[2018-06-21] MEDS ORDERED: CALCIUM CHLORIDE 10%, 10ML SYR IVPush ONE (14:00)
[2018-06-21] MEDS ORDERED: DOCUSATE 100 MG CAPSULE PO PRN (14:00)
[2018-06-21] MEDS ORDERED: IBUPROFEN 600 MG TABLET PO PRN (14:00)
[2018-06-21] MEDS ORDERED: INSULIN REGULAR 100 UNITS/ML, 3ML VIAL IVPush ONE (14:00)
[2018-06-21] MEDS ORDERED: ENALAPRILAT 1.25 MG/ML, 2ML IVPush PRN (14:00)
[2018-06-21] MEDS ORDERED: METOCLOPRAMIDE 5 MG/ML, 2ML IVPush PRN (14:00)
[2018-06-21] MEDS ORDERED: DEXTROSE 50%, 50ML SYRINGE IVPush ONE (14:00)
[2018-06-21] MEDS ORDERED: ACETAMINOPHEN 325 MG TABLET PO PRN (14:00)
[2018-06-21] MEDS ORDERED: SODIUM POLY SULFONATE UDC 15 GM/60 ML PO ONE (14:00)
[2018-06-21] MEDS ORDERED: SODIUM POLY SULFONATE UDC 15 GM/60 ML ONE (14:05)
[2018-06-21] MEDS ORDERED: DEXTROSE 50%, 50ML SYRINGE ONE (14:05)
[2018-06-21] MEDS ORDERED: INSULIN REGULAR 100 UNITS/ML, 3ML VIAL ONE (14:06)
[2018-06-21] MEDS ORDERED: HYDROmorphone 2MG TABLET PO PRN (14:30)
[2018-06-21] MEDS ORDERED: TEMPLATE NON-FORMULARY MED. (Butalbital/Aspirin/Caffeine** (Fiorinal 50-325-40 Mg Capsule PO PRN (14:30)
[2018-06-21] MEDS ORDERED: PIPERACILLIN/TAZO/PMX 3.375GM 50 ML IV SCH (14:30)
[2018-06-21] MEDS ORDERED: PROCHLORPERAZINE 10MG TABLET PO PRN (14:30)
[2018-06-21] MEDS ORDERED: FENTANYL 50 MCG PATCH TD SCH (14:30)
[2018-06-21] MEDS ORDERED: LINEZOLID PMX 600MG/300ML 300 ML IV SCH (14:30)
[2018-06-21] MEDS ORDERED: CEFTRIAXONE 2 GM in SODIUM CHLORIDE 0.9% 50 ML IV SCH (15:00)
[2018-06-21] MEDS ORDERED: CALCIUM CHLORIDE 6.8 MEQ in SODIUM CHLORIDE 0.9% 100 ML IV ONE (15:00)
[2018-06-21 15:13] VITALS: BP 131/79
[2018-06-21] MEDS: ACYCLOVIR 400 MG TABLET PO SCH ×2 (15:49→20:52)
[2018-06-21] MEDS: GABAPENTIN 300 MG CAPSULE PO SCH ×2 (15:50→20:52)
[2018-06-21] MEDS: MAGNESIUM OXIDE 400 MG TABLET PO SCH ×2 (15:50→20:52)
[2018-06-21] MEDS: ENOXAPARIN 40 MG/0.4 ML SQ SCH (15:50)
[2018-06-21] MEDS ORDERED: SODIUM POLYSTYRENE SULFONATE ORAL SUSP PO ONE (17:30)
[2018-06-21] MEDS: SULFAMETH./TRIMETHOPRIM DS 800MG/160MG TABLET PO SCH (17:40)
[2018-06-21 18:34] LABS: ANION GAP 7 mmol/L (5-15); CALCIUM 9.2 mg/dL (8.5-10.1); CHLORIDE 104 mmol/L (98-107); CREATININE 1.41 mg/dL (0.7-1.3)
[2018-06-21 18:57] VITALS: BP 135/79
[2018-06-21] MEDS: URSODIOL 300 MG CAPSULE PO SCH (20:52)
[2018-06-21] MEDS: CEFEPIME 2 GM in DEXTROSE 5% 100 ML IV SCH (20:52)
[2018-06-21] MEDS ORDERED: CYCLOSPORINE-MODIFIED (NEORAL) 100 MG CAPSULE PO SCH (21:00)
[2018-06-21] MEDS: HYDROmorphone 2 MG/ML, 1ML IVPush PRN (21:14)
[2018-06-21] MEDS ORDERED: SODIUM CHLORIDE 0.9% 1,000 ML IV SCH (21:35)
[2018-06-21] MEDS: DOXYCYCLINE 100 MG in DEXTROSE 5% 250 ML IV SCH (22:33)
[2018-06-22 01:18] VITALS: BP 114/63
[2018-06-22 02:08] LABS: MEAN CORPUSCULAR HEMOGLOBIN 33.7 pg (27.5-34.5); MEAN CORPUSCULAR HGB CONC 34.1 g/dL (33.2-36.2); MEAN CORPUSCULAR VOLUME 98.9 fL (81-97); MEAN PLATELET VOLUME 6.4 fL (7.4-10.4); PLATELET COUNT 118 x10^3/uL (130-400); RED BLOOD COUNT 2.48 x10^6/uL (4.38-5.82); RED CELL DISTRIBUTION WIDTH 24.6 % (9.4-14.8)
[2018-06-22 02:11] LABS: MD SCAN
[2018-06-22 02:14] LABS: ALANINE AMINOTRANSFERASE 29 U/L (12-78); ALBUMIN 2.5 g/dL (3.4-5.0); ANION GAP 5 mmol/L (5-15); CALCIUM 7.4 mg/dL (8.5-10.1); CHLORIDE 110 mmol/L (98-107); CREATININE 1.07 mg/dL (0.7-1.3)
[2018-06-22 02:16] LABS: ALKALINE PHOSPHATASE 172 U/L (45-117); BILIRUBIN,TOTAL 0.9 mg/dL (0.2-1.0); TOTAL PROTEIN 4.8 g/dL (6.4-8.2)
[2018-06-22 02:22] LABS: BASOPHILS # (AUTO) 0.02 x10^3/uL (0-0.1); BASOPHILS % (AUTO) 1 % (0-1); EOSINOPHILS # (AUTO) 0.04 x10^3/uL (0-0.4); EOSINOPHILS % (AUTO) 1 % (1-7); LYMPHOCYTES # (AUTO) 0.32 x10^3/uL (1-3.4); LYMPHOCYTES % (AUTO) 11 % (22-44); MONOCYTES # (AUTO) 0.18 x10^3/uL (0.2-0.8); MONOCYTES % (AUTO) 6 % (2-9); NEUTROPHILS % (AUTO) 81 % (42-75)
[2018-06-22] MEDS: CEFEPIME 2 GM in DEXTROSE 5% 100 ML IV SCH ×3 (04:43→20:37)
[2018-06-22] MEDS: HYDROmorphone 2 MG/ML, 1ML IVPush PRN ×5 (04:43→19:55)
[2018-06-22 07:04] VITALS: BP 122/68
[2018-06-22 08:11] LABS: ANION GAP 7 mmol/L (5-15); CALCIUM 7.7 mg/dL (8.5-10.1); CHLORIDE 111 mmol/L (98-107); CREATININE 0.96 mg/dL (0.7-1.3)
[2018-06-22] MEDS: URSODIOL 300 MG CAPSULE PO SCH ×2 (08:16→20:37)
[2018-06-22] MEDS: CHOLECALCIFEROL 1,000 UNIT TABLET PO SCH (08:17)
[2018-06-22] MEDS: PANTOPROZOLE 40MG TABLET PO SCH (08:17)
[2018-06-22] MEDS: AMLODIPINE 10 MG TAB PO SCH (08:18)
[2018-06-22] MEDS: GABAPENTIN 300 MG CAPSULE PO SCH ×3 (08:18→20:38)
[2018-06-22] MEDS: MAGNESIUM OXIDE 400 MG TABLET PO SCH ×3 (08:18→20:38)
[2018-06-22] MEDS: ACYCLOVIR 400 MG TABLET PO SCH ×3 (08:18→20:38)
[2018-06-22] MEDS: DOXYCYCLINE 100 MG in DEXTROSE 5% 250 ML IV SCH ×2 (08:19→22:10)
[2018-06-22] MEDS: SENNA/DOCUSATE TABLET PO SCH (09:00)
[2018-06-22] MEDS: ISAVUCONAZONIUM SULFATE 372 MG PO SCH (09:00)
[2018-06-22] MEDS: [UNRECOGNIZED DRUG - OTHER] PO SCH (09:00)
[2018-06-22 13:06] VITALS: BP 138/72
[2018-06-22] MEDS: ENOXAPARIN 40 MG/0.4 ML SQ SCH (13:38)
[2018-06-22 20:07] VITALS: BP 120/78
[2018-06-22] MEDS: CYCLOSPORINE (SANDIMUNE) 100 MG CAPSULE PO SCH (20:38)
[2018-06-23] MEDS: HYDROmorphone 2 MG/ML, 1ML IVPush PRN ×6 (01:15→21:52)
[2018-06-23 03:30] VITALS: BP 124/70
[2018-06-23] MEDS: CEFEPIME 2 GM in DEXTROSE 5% 100 ML IV SCH ×3 (05:38→22:09)
[2018-06-23 05:40] LABS: ANION GAP 9 mmol/L (5-15); CALCIUM 8.7 mg/dL (8.5-10.1); CHLORIDE 106 mmol/L (98-107)
[2018-06-23 05:41] LABS: CREATININE 1.07 mg/dL (0.7-1.3)
[2018-06-23 05:43] LABS: MEAN CORPUSCULAR HEMOGLOBIN 33.7 pg (27.5-34.5); MEAN CORPUSCULAR HGB CONC 34.1 g/dL (33.2-36.2); MEAN PLATELET VOLUME 6.4 fL (7.4-10.4); PLATELET COUNT 126 x10^3/uL (130-400); RED BLOOD COUNT 2.63 x10^6/uL (4.38-5.82)
[2018-06-23 06:18] LABS: BASOPHILS % (AUTO) 0 % (0-1); EOSINOPHILS # (AUTO) 0.13 x10^3/uL (0-0.4); EOSINOPHILS % (AUTO) 5 % (1-7); LYMPHOCYTES # (AUTO) 0.27 x10^3/uL (1-3.4); LYMPHOCYTES % (AUTO) 9 % (22-44); MD SCAN; MONOCYTES # (AUTO) 0.24 x10^3/uL (0.2-0.8); MONOCYTES % (AUTO) 8 % (2-9); NEUTROPHILS # (AUTO) 2.31 x10^3/uL (1.8-6.8); NEUTROPHILS % (AUTO) 78 % (42-75)
[2018-06-23 07:33] VITALS: BP 125/77
[2018-06-23] MEDS: PANTOPROZOLE 40MG TABLET PO SCH (09:46)
[2018-06-23] MEDS: GABAPENTIN 300 MG CAPSULE PO SCH ×3 (09:46→21:43)
[2018-06-23] MEDS: CHOLECALCIFEROL 1,000 UNIT TABLET PO SCH (09:46)
[2018-06-23] MEDS: MAGNESIUM OXIDE 400 MG TABLET PO SCH ×3 (09:47→21:43)
[2018-06-23] MEDS: SENNA/DOCUSATE TABLET PO SCH (09:47)
[2018-06-23] MEDS: ACYCLOVIR 400 MG TABLET PO SCH ×3 (09:47→21:43)
[2018-06-23] MEDS: AMLODIPINE 10 MG TAB PO SCH (09:48)
[2018-06-23] MEDS: CYCLOSPORINE (SANDIMUNE) 100 MG CAPSULE PO SCH ×2 (09:49→21:44)
[2018-06-23] MEDS: ISAVUCONAZONIUM SULFATE 372 MG PO SCH (09:51)
[2018-06-23] MEDS: [UNRECOGNIZED DRUG - OTHER] PO SCH (09:55)
[2018-06-23] MEDS: URSODIOL 300 MG CAPSULE PO SCH ×2 (10:12→21:43)
[2018-06-23] MEDS: DOXYCYCLINE 100 MG in DEXTROSE 5% 250 ML IV SCH ×2 (10:12→22:09)
[2018-06-23 13:50] VITALS: BP 124/80
[2018-06-23] MEDS: ENOXAPARIN 40 MG/0.4 ML SQ SCH (14:15)
[2018-06-23 20:46] VITALS: BP 153/81
[2018-06-24] MEDS: HYDROmorphone 2 MG/ML, 1ML IVPush PRN ×4 (02:11→13:29)
[2018-06-24 02:13] VITALS: BP 134/80
[2018-06-24] MEDS: CEFEPIME 2 GM in DEXTROSE 5% 100 ML IV SCH (05:02)
[2018-06-24 05:45] LABS: ANION GAP 8 mmol/L (5-15); CHLORIDE 104 mmol/L (98-107); CREATININE 0.95 mg/dL (0.7-1.3)
[2018-06-24 05:56] LABS: MEAN CORPUSCULAR HEMOGLOBIN 33.4 pg (27.5-34.5); MEAN CORPUSCULAR HGB CONC 34.2 g/dL (33.2-36.2); MEAN CORPUSCULAR VOLUME 97.7 fL (81-97); MEAN PLATELET VOLUME 6.6 fL (7.4-10.4); PLATELET COUNT 156 x10^3/uL (130-400); RED BLOOD COUNT 2.83 x10^6/uL (4.38-5.82); RED CELL DISTRIBUTION WIDTH 23.7 % (9.4-14.8)
[2018-06-24 06:31] LABS: BASOPHILS # (AUTO) 0.02 x10^3/uL (0-0.1); BASOPHILS % (AUTO) 1 % (0-1); EOSINOPHILS # (AUTO) 0.15 x10^3/uL (0-0.4); EOSINOPHILS % (AUTO) 4 % (1-7); LYMPHOCYTES # (AUTO) 0.41 x10^3/uL (1-3.4); LYMPHOCYTES % (AUTO) 12 % (22-44); MD SCAN; MONOCYTES # (AUTO) 0.35 x10^3/uL (0.2-0.8); MONOCYTES % (AUTO) 10 % (2-9); NEUTROPHILS % (AUTO) 74 % (42-75)
[2018-06-24] MEDS: SENNA/DOCUSATE TABLET PO SCH (09:00)
[2018-06-24 09:04] VITALS: BP 166/83
[2018-06-24] MEDS ORDERED: LEVOFLOXACIN 750 MG TABLET PO SCH (10:00)
[2018-06-24] MEDS: URSODIOL 300 MG CAPSULE PO SCH (10:31)
[2018-06-24] MEDS: AMLODIPINE 10 MG TAB PO SCH (10:32)
[2018-06-24] MEDS: MAGNESIUM OXIDE 400 MG TABLET PO SCH (10:33)
[2018-06-24] MEDS: GABAPENTIN 300 MG CAPSULE PO SCH (10:34)
[2018-06-24] MEDS: PANTOPROZOLE 40MG TABLET PO SCH (10:35)
[2018-06-24] MEDS: SULFAMETH./TRIMETHOPRIM DS 800MG/160MG TABLET PO SCH (10:36)
[2018-06-24] MEDS: CYCLOSPORINE (SANDIMUNE) 100 MG CAPSULE PO SCH (10:36)
[2018-06-24] MEDS: ACYCLOVIR 400 MG TABLET PO SCH (10:37)
[2018-06-24] MEDS: [UNRECOGNIZED DRUG - OTHER] PO SCH (10:38)
[2018-06-24] MEDS: ISAVUCONAZONIUM SULFATE 372 MG PO SCH (10:38)
[2018-06-24] MEDS: CHOLECALCIFEROL 1,000 UNIT TABLET PO SCH (10:41)
[2018-06-24] MEDS ORDERED: LEVO750T26 PO ×2 (12:49→13:30)
[2018-06-24 12:53] VITALS: BP 151/76
[2018-06-24] MEDS: ENOXAPARIN 40 MG/0.4 ML SQ SCH (14:00)
== END 2018-06-24 14:30 | disposition home or self-care (01) | DRG 871 ==
LOC: ED 12:44 → EDIP 13:16 → 4WST 15:07 → 3NW 06-23 18:08
PROVIDERS: ADMIT Internal Medicine; ATTEND Internal Medicine
DX: A41.9 Sepsis, unspecified organism (principal); J15.9 Unspecified bacterial pneumonia; E87.1 Hypo-osmolality and hyponatremia; Z94.81 Bone marrow transplant status; Z94.84 Stem cells transplant status; D61.9 Aplastic anemia, unspecified; N17.9 Acute kidney failure, unspecified; E44.0 Moderate protein-calorie malnutrition; E83.42 Hypomagnesemia; Z87.891 Personal history of nicotine dependence; D46.9 Myelodysplastic syndrome, unspecified; G62.9 Polyneuropathy, unspecified; I11.0 Hypertensive heart disease with heart failure; M19.90 Unspecified osteoarthritis, unspecified site; Z79.4 Long term (current) use of insulin; Z79.891 Long term (current) use of opiate analgesic; Z88.8 Allergy status to other drugs, medicaments and biological substances; Z91.010 Allergy to peanuts; D63.8 Anemia in other chronic diseases classified elsewhere; E78.5 Hyperlipidemia, unspecified; E87.5 Hyperkalemia; G89.29 Other chronic pain; Z87.11 Personal history of peptic ulcer disease; Z98.1 Arthrodesis status; Z82.49 Family history of ischemic heart disease and other diseases of the circulatory system; Z79.899 Other long term (current) drug therapy; Z90.49 Acquired absence of other specified parts of digestive tract; E87.6 Hypokalemia; Z68.20 Body mass index [BMI] 20.0-20.9, adult
CPT/HCPCS: 36415; 71045; 71250; 80048; 80053; 80158; 81001; 83605; 83735; 84100; 85025; 86645; 86738; 87040; 87086; 87205; 87305; 87449; 87497; 93005; 96361; 96365; 96375; 99285; G0378; J0696; J1170; J1650; J2543; J7060; J7030; J7120; J7502; J7512; J7517

== ENCOUNTER → 2018-08-08 | Outpatient (CLI) | payer MEDICARE, BC ==
[~2018-08-08] MED LIST changes: +LEVO750T26 PO
== END | disposition home or self-care (01) ==
LOC: RAD 12:02
PROVIDERS: ATTEND Family Medicine
DX: J43.9 Emphysema, unspecified (principal)
CPT/HCPCS: 71046

== ENCOUNTER 2018-09-23 16:25 | Inpatient (IN) | payer MEDICARE, BC ==
[~2018-09-23] VITALS: Ht 185.4 cm; Wt 72.3 kg
[2018-09-23 17:08] LABS: BASOPHILS # (AUTO) 0.01 x10^3/uL (0-0.1); BASOPHILS % (AUTO) 0 % (0-1); EOSINOPHILS # (AUTO) 0.03 x10^3/uL (0-0.4); EOSINOPHILS % (AUTO) 0 % (1-7); LYMPHOCYTES # (AUTO) 0.44 x10^3/uL (1-3.4); LYMPHOCYTES % (AUTO) 7 % (22-44); MD NO; MEAN CORPUSCULAR HEMOGLOBIN 33.7 pg (27.5-34.5); MEAN CORPUSCULAR HGB CONC 33.9 g/dL (33.2-36.2); MEAN CORPUSCULAR VOLUME 99.3 fL (81-97); MEAN PLATELET VOLUME 6.3 fL (7.4-10.4); MONOCYTES # (AUTO) 0.41 x10^3/uL (0.2-0.8); MONOCYTES % (AUTO) 7 % (2-9); NEUTROPHILS # (AUTO) 5.46 x10^3/uL (1.8-6.8); NEUTROPHILS % (AUTO) 86 % (42-75); PLATELET COUNT 162 x10^3/uL (130-400); RED BLOOD COUNT 3.76 x10^6/uL (4.38-5.82); RED CELL DISTRIBUTION WIDTH 16.5 % (9.4-14.8)
[2018-09-23 17:20] LABS: ALBUMIN 3.1 g/dL (3.4-5.0); ANION GAP 6 mmol/L (5-15); CALCIUM 8.4 mg/dL (8.5-10.1); CHLORIDE 105 mmol/L (98-107)
[2018-09-23 17:23] LABS: ALANINE AMINOTRANSFERASE 23 U/L (12-78); ALKALINE PHOSPHATASE 215 U/L (45-117); BILIRUBIN,TOTAL 0.9 mg/dL (0.2-1.0); CREATININE 1.23 mg/dL (0.7-1.3); TOTAL PROTEIN 5.8 g/dL (6.4-8.2)
[2018-09-23] MEDS ORDERED: CEFTRIAXONE 1,000 MG in SODIUM CHLORIDE 0.9% 50 ML IVPB ONE (18:00)
[2018-09-23] MEDS ORDERED: AZITHROMYCIN 500 MG in SODIUM CHLORIDE 0.9% 250 ML IVPB ONE (18:00)
[2018-09-23] MEDS ORDERED: CEFTRIAXONE PMX 1GM/50ML 50 ML ONE (18:19)
[2018-09-23] MEDS ORDERED: SODIUM CHLORIDE FLUSH 10ML SYR IVF PRN (18:30)
[2018-09-23] MEDS ORDERED: ONDANSETRON 2MG/ML, 2ML IVPush PRN (19:00)
[2018-09-23] MEDS ORDERED: morphine SULFATE 10 MG/ML, 1ML IVPush PRN (19:00)
[2018-09-23] MEDS ORDERED: ONDANSETRON ODT 4 MG PO PRN (19:00)
[2018-09-23] MEDS ORDERED: IBUPROFEN 600 MG TABLET PO PRN (19:00)
[2018-09-23] MEDS ORDERED: FENTANYL 25 MCG PATCH TD SCH (19:00)
[2018-09-23] MEDS ORDERED: ACETAMINOPHEN 325 MG TABLET PO PRN (19:00)
[2018-09-23 19:10] VITALS: BP 151/90
[2018-09-23] MEDS ORDERED: FENTANYL 100 MCG PATCH TD SCH (19:37)
[2018-09-23] MEDS ORDERED: [UNRECOGNIZED DRUG - REMARK] MC SCH (20:00)
[2018-09-23] MEDS ORDERED: FENTANYL REMOVE PATCH NOTE XX SCH (20:00)
[2018-09-23] MEDS: SODIUM CHLORIDE 0.9% 1,000 ML IV SCH (20:14)
[2018-09-23] MEDS: HYDROmorphone 2 MG/ML, 1ML IVPush PRN (20:45)
[2018-09-23] MEDS: OXYcodone IR 5MG TABLET PO PRN (20:45)
[2018-09-23] MEDS: MAGNESIUM OXIDE 400 MG TABLET PO SCH (20:50)
[2018-09-23] MEDS: URSODIOL 300 MG CAPSULE PO SCH (20:50)
[2018-09-23] MEDS: CYCLOSPORINE (SANDIMUNE) 100 MG CAPSULE PO SCH (20:50)
[2018-09-23] MEDS: ACYCLOVIR 200 MG CAPSULE PO SCH (20:50)
[2018-09-23 21:07] LABS: RAPID INFLUENZA A Negative (Negative); RAPID INFLUENZA B Negative (Negative)
[2018-09-24 02:22] VITALS: BP 135/79
[2018-09-24] MEDS: OXYcodone IR 5MG TABLET PO PRN ×4 (02:29→21:54)
[2018-09-24] MEDS: HYDROmorphone 2 MG/ML, 1ML IVPush PRN ×7 (02:30→22:59)
[2018-09-24] MEDS: SODIUM CHLORIDE 0.9% 1,000 ML IV SCH ×2 (02:55→11:14)
[2018-09-24] MEDS: CEFEPIME 2 GM in DEXTROSE 5% 100 ML IV SCH ×3 (04:38→19:44)
[2018-09-24] MEDS: PANTOPROZOLE 40MG TABLET PO SCH (05:49)
[2018-09-24 06:23] LABS: ALBUMIN 2.6 g/dL (3.4-5.0); ANION GAP 7 mmol/L (5-15); CALCIUM 7.9 mg/dL (8.5-10.1); CHLORIDE 104 mmol/L (98-107)
[2018-09-24 06:26] LABS: ALANINE AMINOTRANSFERASE 18 U/L (12-78); ALKALINE PHOSPHATASE 176 U/L (45-117); BILIRUBIN,TOTAL 0.6 mg/dL (0.2-1.0); CREATININE 1.08 mg/dL (0.7-1.3)
[2018-09-24 06:45] LABS: BASOPHILS # (AUTO) 0.01 x10^3/uL (0-0.1); BASOPHILS % (AUTO) 0 % (0-1); EOSINOPHILS # (AUTO) 0.05 x10^3/uL (0-0.4); EOSINOPHILS % (AUTO) 2 % (1-7); LYMPHOCYTES # (AUTO) 0.48 x10^3/uL (1-3.4); LYMPHOCYTES % (AUTO) 15 % (22-44); MD NO; MEAN CORPUSCULAR HEMOGLOBIN 34.3 pg (27.5-34.5); MEAN CORPUSCULAR HGB CONC 34.7 g/dL (33.2-36.2); MEAN PLATELET VOLUME 6.2 fL (7.4-10.4); MONOCYTES # (AUTO) 0.31 x10^3/uL (0.2-0.8); MONOCYTES % (AUTO) 10 % (2-9); NEUTROPHILS % (AUTO) 73 % (42-75); PLATELET COUNT 140 x10^3/uL (130-400); RED BLOOD COUNT 3.23 x10^6/uL (4.38-5.82); RED CELL DISTRIBUTION WIDTH 16.6 % (9.4-14.8)
[2018-09-24 07:39] VITALS: BP 141/75
[2018-09-24] MEDS: CHOLECALCIFEROL 1,000 UNIT TABLET PO SCH (08:21)
[2018-09-24] MEDS: URSODIOL 300 MG CAPSULE PO SCH ×2 (08:21→21:54)
[2018-09-24] MEDS: FUROSEMIDE 20 MG TABLET PO SCH (08:22)
[2018-09-24] MEDS: CYCLOSPORINE (SANDIMUNE) 100 MG CAPSULE PO SCH (08:22)
[2018-09-24] MEDS: AZITHROMYCIN 250 MG TABLET PO SCH (08:22)
[2018-09-24] MEDS: ACYCLOVIR 200 MG CAPSULE PO SCH ×2 (08:23→21:54)
[2018-09-24] MEDS: ENOXAPARIN 40 MG/0.4 ML SQ SCH (09:00)
[2018-09-24] MEDS: MAGNESIUM OXIDE 400 MG TABLET PO SCH ×3 (09:00→21:54)
[2018-09-24 13:15] VITALS: BP 148/78
[2018-09-24] MEDS ORDERED: OMNIPAQUE 350 MG/ML, 100ML BOTTLE ONE (13:55)
[2018-09-24] MEDS ORDERED: ENALAPRILAT 1.25 MG/ML, 2ML IV PRN (14:30)
[2018-09-24] MEDS ORDERED: FUROSEMIDE 20 MG/2 ML IV ONE (16:30)
[2018-09-24] MEDS ORDERED: SODIUM CHLORIDE 0.9% 1,000 ML IV SCH (18:46)
[2018-09-24 19:37] VITALS: BP 108/68
[2018-09-24] MEDS: CYCLOSPORINE (SANDIMUNE) 100 MG CAPSULE HOMEMEDPO SCH (21:54)
[2018-09-25 02:13] VITALS: BP 136/85
[2018-09-25] MEDS: HYDROmorphone 2 MG/ML, 1ML IVPush PRN ×5 (02:13→14:33)
[2018-09-25] MEDS: OXYcodone IR 5MG TABLET PO PRN (03:35)
[2018-09-25] MEDS: CEFEPIME 2 GM in DEXTROSE 5% 100 ML IV SCH ×2 (03:47→11:42)
[2018-09-25 04:01] LABS: BASOPHILS # (AUTO) 0.02 x10^3/uL (0-0.1); BASOPHILS % (AUTO) 1 % (0-1); EOSINOPHILS # (AUTO) 0.11 x10^3/uL (0-0.4); EOSINOPHILS % (AUTO) 3 % (1-7); LYMPHOCYTES % (AUTO) 11 % (22-44); MD NO; MEAN CORPUSCULAR HEMOGLOBIN 34.2 pg (27.5-34.5); MEAN CORPUSCULAR HGB CONC 34.9 g/dL (33.2-36.2); MEAN CORPUSCULAR VOLUME 98.2 fL (81-97); MEAN PLATELET VOLUME 6.1 fL (7.4-10.4); MONOCYTES # (AUTO) 0.46 x10^3/uL (0.2-0.8); MONOCYTES % (AUTO) 13 % (2-9); NEUTROPHILS # (AUTO) 2.56 x10^3/uL (1.8-6.8); NEUTROPHILS % (AUTO) 72 % (42-75); PLATELET COUNT 156 x10^3/uL (130-400); RED BLOOD COUNT 3.48 x10^6/uL (4.38-5.82); RED CELL DISTRIBUTION WIDTH 16.4 % (9.4-14.8)
[2018-09-25 04:10] LABS: ALBUMIN 2.7 g/dL (3.4-5.0); ANION GAP 3 mmol/L (5-15); CALCIUM 8.5 mg/dL (8.5-10.1); CHLORIDE 101 mmol/L (98-107)
[2018-09-25 04:46] LABS: HEMOGLOBIN A1C 5.2 % (4.2-6.3)
[2018-09-25] MEDS: ENOXAPARIN 40 MG/0.4 ML SQ SCH (04:48)
[2018-09-25] MEDS: PANTOPROZOLE 40MG TABLET PO SCH (05:33)
[2018-09-25 06:53] VITALS: BP 139/94
[2018-09-25] MEDS: MAGNESIUM OXIDE 400 MG TABLET PO SCH (08:28)
[2018-09-25] MEDS: ACYCLOVIR 200 MG CAPSULE PO SCH (08:28)
[2018-09-25] MEDS: FUROSEMIDE 20 MG TABLET PO SCH (08:29)
[2018-09-25] MEDS: AZITHROMYCIN 250 MG TABLET PO SCH (08:29)
[2018-09-25] MEDS: CHOLECALCIFEROL 1,000 UNIT TABLET PO SCH (08:29)
[2018-09-25] MEDS: URSODIOL 300 MG CAPSULE PO SCH (08:29)
[2018-09-25] MEDS: CYCLOSPORINE (SANDIMUNE) 100 MG CAPSULE HOMEMEDPO SCH (08:29)
[2018-09-25 13:00] VITALS: BP 127/86
== END 2018-09-25 15:57 | disposition home or self-care (01) | DRG 186 ==
LOC: ED 17:51 → EDIP 18:21 → 3NW 19:00
PROVIDERS: ADMIT Family Medicine; ATTEND Family Medicine
DX: J90 Pleural effusion, not elsewhere classified (principal); J96.01 Acute respiratory failure with hypoxia; Z94.81 Bone marrow transplant status; Z87.891 Personal history of nicotine dependence; D46.9 Myelodysplastic syndrome, unspecified; M19.90 Unspecified osteoarthritis, unspecified site; Z87.11 Personal history of peptic ulcer disease; Z79.899 Other long term (current) drug therapy; I10 Essential (primary) hypertension; Z91.010 Allergy to peanuts
CPT/HCPCS: 36415; 71045; 71275; 80048; 80053; 82040; 83036; 83605; 83880; 85025; 87040; 87400; 93005; 96365; 97163; 99285; G0378; J0456; J0696; J1170; Q9967; J1940; J7030; J7050; J7502

== ENCOUNTER → 2018-10-11 | Outpatient (CLI) | payer MEDICARE, BC | END | disposition home or self-care (01) | LOC: CFH 13:46 | PROVIDERS: ATTEND Internal Medicine Hematology & Oncology | DX: I08.1 Rheumatic disorders of both mitral and tricuspid valves (principal); D64.9 Anemia, unspecified; R60.9 Edema, unspecified; M19.90 Unspecified osteoarthritis, unspecified site; Z94.84 Stem cells transplant status; Z90.49 Acquired absence of other specified parts of digestive tract; Z87.891 Personal history of nicotine dependence | CPT/HCPCS: 93306 ==

== ENCOUNTER 2018-12-01 00:55 | Inpatient (IN) | payer MEDICARE, BC ==
[~2018-12-01] VITALS: Ht 185.4 cm; Wt 72.4 kg
[~2018-12-01 00:55] MED LIST changes: -AMLO10TA6 PO; +AMLO10TA8 PO; +VALG450T PO
--- NOTE | 2018-12-01 01:01 | NUR ---
PT BROUGHT IN BY [facility] FOR GROUND LEVEL FALL BEFORE BED. PT WENT TO BED AND LATER WOKEN BY PAIN IN L HIP. MEDIC STATES NO SIGNS OF HIP FX NOTED. PT ALSO HIT HEAD BUT NO LOC. PT A&O X4 ON SCENE, GCS OF 15. GIVEN 1MG OF VERSED, 21MG KETAMINE, AND 4MG ZOFRAM BY [facility]. PT HAS PICC LINE IN [place]. HE WEARS A MASK TO PROTECT HIMSELF HE TAKES IMMUNOSUPPRESANTS
[2018-12-01] MEDS ORDERED: SODIUM CHLORIDE FLUSH 10ML SYR IVF ONE (01:30)
[2018-12-01] MEDS ORDERED: PLEASE ENTER HEIGHT AND WEIGHT MC SCH (01:30)
[2018-12-01] MEDS ORDERED: MORPHINE SULFATE 4 MG/ML, 1ML IVPush PRN (01:30)
[2018-12-01] MEDS ORDERED: MORPHINE SULFATE 4 MG/ML, 1ML ONE (01:33)
--- NOTE | 2018-12-01 01:34 | NUR ---
PT MEDICATED PER [facility], C/O L HIP PAIN 06/10
[2018-12-01 01:58] LABS: BASOPHILS # (AUTO) 0.02 x10^3/uL (0-0.1); BASOPHILS % (AUTO) 0 % (0-1); EOSINOPHILS # (AUTO) 0.02 x10^3/uL (0-0.4); EOSINOPHILS % (AUTO) 0 % (1-7); LYMPHOCYTES # (AUTO) 0.71 x10^3/uL (1-3.4); LYMPHOCYTES % (AUTO) 14 % (22-44); MD NO; MEAN CORPUSCULAR HEMOGLOBIN 35.3 pg (27.5-34.5); MEAN CORPUSCULAR HGB CONC 34.7 g/dL (33.2-36.2); MEAN CORPUSCULAR VOLUME 101.9 fL (81-97); MEAN PLATELET VOLUME 5.9 fL (7.4-10.4); MONOCYTES # (AUTO) 0.27 x10^3/uL (0.2-0.8); MONOCYTES % (AUTO) 5 % (2-9); NEUTROPHILS % (AUTO) 80 % (42-75); PLATELET COUNT 159 x10^3/uL (130-400); RED BLOOD COUNT 3.41 x10^6/uL (4.38-5.82)
[2018-12-01 02:05] LABS: INTERNATIONAL NORMALIZED RATIO 1.02 (0.93-1.1); PROTHROMBIN TIME 10.7 Seconds (9.6-11.5)
[2018-12-01] MEDS ORDERED: ATOV750O PO (02:07)
[2018-12-01] MEDS ORDERED: DEXA0.5E2 PO (02:07)
[2018-12-01 02:08] LABS: ALANINE AMINOTRANSFERASE 16 U/L (12-78); ALBUMIN 3.4 g/dL (3.4-5.0); ANION GAP 6 mmol/L (5-15); CALCIUM 8.1 mg/dL (8.5-10.1); CHLORIDE 100 mmol/L (98-107); CREATININE 1.57 mg/dL (0.7-1.3)
[2018-12-01 02:09] LABS: ALKALINE PHOSPHATASE 233 U/L (45-117); BILIRUBIN,TOTAL 0.3 mg/dL (0.2-1.0)
[2018-12-01] MEDS ORDERED: HYDROmorphone 1 MG/ML, 1ML ONE (02:14)
--- NOTE | 2018-12-01 02:15 | NUR ---
PT STILL IN PAIN, 06/10, MEDIACTED PER [facility]
[2018-12-01] MEDS ORDERED: SODIUM CHLORIDE 0.9%, 500ML IVBOLUS ONE (02:30)
[2018-12-01] MEDS ORDERED: HYDROmorphone 2 MG/ML, 1ML IVPush PRN (02:30)
--- NOTE | 2018-12-01 02:56 | NUR ---
REPORT TO [facility].
[2018-12-01] MEDS ORDERED: FURO-93 PO (03:46)
[2018-12-01] MEDS ORDERED: CYCL100C12 PO (03:46)
[2018-12-01] MEDS ORDERED: FENT-58 TD (03:46)
[2018-12-01] MEDS ORDERED: POLYETHYLENE GLYCOL 17 GM PACKET PO PRN (04:00)
[2018-12-01] MEDS: HEPARIN 5,000 UNITS/ML, 1ML SQ SCH ×3 (04:00→19:31)
[2018-12-01] MEDS ORDERED: ENALAPRILAT 1.25 MG/ML, 2ML IVPush PRN (04:00)
[2018-12-01] MEDS ORDERED: ONDANSETRON 2MG/ML, 2ML IVPush PRN (04:00)
[2018-12-01] MEDS ORDERED: BISACODYL 10 MG SUPP PR PRN (04:00)
[2018-12-01] MEDS ORDERED: PROCHLORPERAZINE 10MG TABLET PO PRN (04:30)
[2018-12-01] MEDS ORDERED: FENTANYL 75 MCG PATCH TD SCH (04:30)
[2018-12-01] MEDS: FENTANYL REMOVE PATCH NOTE XX SCH ×2 (04:30→10:30)
[2018-12-01] MEDS: OXYcodone IR 5MG TABLET PO PRN ×4 (04:32→20:36)
[2018-12-01] MEDS: SODIUM CHLORIDE 0.9% 1,000 ML IV SCH ×2 (04:40→18:45)
[2018-12-01] MEDS: HYDROmorphone 2 MG/ML, 1ML IVPush PRN ×5 (05:34→21:17)
[2018-12-01 06:03] VITALS: BP 131/87
[2018-12-01 06:51] VITALS: BP 120/72
[2018-12-01] MEDS ORDERED: CYCLOSPORINE (SANDIMUNE) 100 MG CAPSULE PO SCH (09:00)
[2018-12-01] MEDS ORDERED: DEXAMETHASONE 0.5 MG/5 ML ORAL SOL PO SCH (09:00)
[2018-12-01] MEDS: SENNA/DOCUSATE TABLET PO SCH (09:00)
[2018-12-01] MEDS ORDERED: FENTANYL 50 MCG PATCH ONE (11:21)
[2018-12-01] MEDS ORDERED: FENTANYL 25 MCG PATCH ONE (11:21)
[2018-12-01] MEDS: MAGNESIUM OXIDE 400 MG TABLET PO SCH ×3 (11:30→20:36)
[2018-12-01] MEDS: ISAVUCONAZONIUM SULFATE 372 MG HOMEMEDPO SCH (11:30)
[2018-12-01] MEDS: URSODIOL 300 MG CAPSULE PO SCH ×2 (11:34→20:36)
[2018-12-01] MEDS: DEXAMETHASONE INTENSOL 1 MG/ML ORAL SOL PO SCH (11:35)
[2018-12-01] MEDS: ATOVAQUONE 150 MG/ML PO SCH (11:37)
[2018-12-01] MEDS: FUROSEMIDE 20 MG TABLET PO SCH (11:37)
[2018-12-01] MEDS: PANTOPROZOLE 40MG TABLET PO SCH (11:38)
[2018-12-01] MEDS: CHOLECALCIFEROL 1,000 UNIT TABLET PO SCH (11:41)
[2018-12-01] MEDS: VALGANCICLOVIR 450MG TABLET PO SCH ×2 (11:42→20:37)
[2018-12-01 12:01] LABS: MICROSCOPIC NOT IND
[2018-12-01] MEDS: ACETAMINOPHEN 325 MG TABLET PO PRN ×2 (12:04→19:33)
[2018-12-01 12:05] LABS: CULTURE INDICATED? NO
[2018-12-01 12:10] VITALS: BP 124/73
[2018-12-01] MEDS: FENTANYL 75 MCG PATCH TD SCH (13:00)
[2018-12-01 19:10] VITALS: BP 121/63
[2018-12-01] MEDS: GENGRAF PO SCH (20:37)
[2018-12-02] MEDS: HYDROmorphone 2 MG/ML, 1ML IVPush PRN ×7 (00:51→20:54)
[2018-12-02 01:43] VITALS: BP 146/83
[2018-12-02] MEDS: HEPARIN 5,000 UNITS/ML, 1ML SQ SCH ×3 (03:28→20:55)
[2018-12-02] MEDS: OXYcodone IR 5MG TABLET PO PRN ×2 (03:28→07:31)
[2018-12-02] MEDS: SODIUM CHLORIDE 0.9% 1,000 ML IV SCH (07:31)
[2018-12-02 07:38] VITALS: BP 162/83
[2018-12-02] MEDS: FENTANYL 75 MCG PATCH TD SCH (08:21)
[2018-12-02] MEDS: ISAVUCONAZONIUM SULFATE 372 MG HOMEMEDPO SCH (09:00)
[2018-12-02] MEDS: GENGRAF PO SCH ×2 (09:00→20:53)
[2018-12-02] MEDS: VALGANCICLOVIR 450MG TABLET PO SCH ×2 (09:00→20:56)
[2018-12-02] MEDS: SENNA/DOCUSATE TABLET PO SCH (09:00)
[2018-12-02] MEDS: CHOLECALCIFEROL 1,000 UNIT TABLET PO SCH (10:44)
[2018-12-02] MEDS: URSODIOL 300 MG CAPSULE PO SCH ×2 (10:44→20:54)
[2018-12-02] MEDS: PANTOPROZOLE 40MG TABLET PO SCH (10:44)
[2018-12-02] MEDS: MAGNESIUM OXIDE 400 MG TABLET PO SCH ×3 (10:44→20:54)
[2018-12-02] MEDS: DEXAMETHASONE INTENSOL 1 MG/ML ORAL SOL PO SCH (10:46)
[2018-12-02] MEDS: ATOVAQUONE 150 MG/ML PO SCH (10:46)
[2018-12-02] MEDS: FUROSEMIDE 20 MG TABLET PO SCH (12:14)
[2018-12-02 12:45] VITALS: BP 134/73
[2018-12-02 19:40] VITALS: BP 148/77
[2018-12-03] MEDS: SODIUM CHLORIDE 0.9% 1,000 ML IV SCH (01:03)
[2018-12-03 02:39] VITALS: BP 175/107
[2018-12-03] MEDS: HYDROmorphone 2 MG/ML, 1ML IVPush PRN ×2 (03:17→07:50)
[2018-12-03] MEDS: HEPARIN 5,000 UNITS/ML, 1ML SQ SCH ×2 (03:18→12:00)
[2018-12-03] MEDS ORDERED: HYDROmorphone 2MG TABLET PO PRN (05:00)
[2018-12-03 07:57] VITALS: BP 147/83
[2018-12-03] MEDS: PANTOPROZOLE 40MG TABLET PO SCH (08:00)
[2018-12-03] MEDS: MAGNESIUM OXIDE 400 MG TABLET PO SCH ×2 (08:00→15:06)
[2018-12-03] MEDS: URSODIOL 300 MG CAPSULE PO SCH (08:00)
[2018-12-03] MEDS: GENGRAF PO SCH (08:00)
[2018-12-03] MEDS: FUROSEMIDE 20 MG TABLET PO SCH (08:00)
[2018-12-03] MEDS: CHOLECALCIFEROL 1,000 UNIT TABLET PO SCH (08:00)
[2018-12-03] MEDS: VALGANCICLOVIR 450MG TABLET PO SCH (08:00)
[2018-12-03] MEDS: SENNA/DOCUSATE TABLET PO SCH (08:00)
[2018-12-03] MEDS: ISAVUCONAZONIUM SULFATE 372 MG HOMEMEDPO SCH (08:00)
[2018-12-03] MEDS: ATOVAQUONE 150 MG/ML PO SCH (08:00)
[2018-12-03] MEDS: DEXAMETHASONE INTENSOL 1 MG/ML ORAL SOL PO SCH (08:00)
[2018-12-03] MEDS ORDERED: FENTANYL 75 MCG PATCH TD SCH (12:00)
[2018-12-03 12:30] VITALS: BP 144/90
[2018-12-03] MEDS: HYDROmorphone 2MG TABLET PO PRN ×2 (13:14→15:06)
[2018-12-03 13:50] LABS: ANION GAP 6 mmol/L (5-15); CALCIUM 8.7 mg/dL (8.5-10.1); CHLORIDE 103 mmol/L (98-107)
[2018-12-04] MEDS ORDERED: FENTANYL REMOVE PATCH NOTE XX SCH (12:00)
== END 2018-12-03 17:01 | disposition home or self-care (01) | DRG 542 ==
LOC: ED 01:22 → EDIP 02:18 → 3NE 03:15 → 3NW 18:30
PROVIDERS: ADMIT Family Medicine; ATTEND Family Medicine
DX: M80.052A Age-related osteoporosis with current pathological fracture, left femur, initial encounter for fracture (principal); E43 Unspecified severe protein-calorie malnutrition; Z94.81 Bone marrow transplant status; E87.1 Hypo-osmolality and hyponatremia; D46.9 Myelodysplastic syndrome, unspecified; G89.29 Other chronic pain; Z66 Do not resuscitate; I25.10 Atherosclerotic heart disease of native coronary artery without angina pectoris; J44.9 Chronic obstructive pulmonary disease, unspecified; K21.9 Gastro-esophageal reflux disease without esophagitis; N18.9 Chronic kidney disease, unspecified; W11.XXXA Fall on and from ladder, initial encounter; W22.03XA Walked into furniture, initial encounter; Y92.009 Unspecified place in unspecified non-institutional (private) residence as the place of occurrence of the external cause; Z79.4 Long term (current) use of insulin; Z79.899 Other long term (current) drug therapy; Z82.49 Family history of ischemic heart disease and other diseases of the circulatory system; Z87.891 Personal history of nicotine dependence; Z91.010 Allergy to peanuts; Z87.11 Personal history of peptic ulcer disease; Z90.49 Acquired absence of other specified parts of digestive tract; Z68.21 Body mass index [BMI] 21.0-21.9, adult; Z88.8 Allergy status to other drugs, medicaments and biological substances
CPT/HCPCS: 36415; 70450; 71045; 80048; 80053; 81003; 85025; 85610; 93005; 99285; G0378; J1170; J1644; J7030; J7040; J7502

== ENCOUNTER 2019-01-13 09:15 | Outpatient (CLI) | payer MEDICARE, BC ==
[~2019-01-13 09:15] MED LIST changes: +ATOV750O PO; +CYCL100C12 PO; +DEXA0.5E2 PO; +FENT-58 TD; +FURO-93 PO
== END 2019-01-13 23:59 | disposition home or self-care (01) ==
LOC: CFH 09:15
PROVIDERS: ATTEND Registered Nurse Oncology
DX: M81.8 Other osteoporosis without current pathological fracture (principal); D61.9 Aplastic anemia, unspecified; Z91.018 Allergy to other foods; Z91.010 Allergy to peanuts; Z94.81 Bone marrow transplant status; R79.89 Other specified abnormal findings of blood chemistry
CPT/HCPCS: 36415; 77080; 80053; 83735; 85025; 87497; 99211; G0463

== ENCOUNTER → 2019-02-21 | Outpatient (CLI) | payer MEDICARE, BC ==
[2019-02-21 12:59] LABS: MICROSCOPIC AUTO
[2019-02-21 13:02] LABS: CULTURE INDICATED? NO
== END | disposition home or self-care (01) ==
LOC: LAB 12:29
PROVIDERS: ATTEND Family Medicine
DX: D61.9 Aplastic anemia, unspecified (principal); Z94.81 Bone marrow transplant status
CPT/HCPCS: 81001

== ENCOUNTER 2019-08-15 02:56 | Inpatient (IN) | payer MEDICARE, BC ==
[~2019-08-15] VITALS: Ht 190.5 cm; Wt 69.6 kg
[~2019-08-15 02:56] MED LIST changes: +ALEN70TA6 PO; +ASPI-515 PO; +ATOR40TA78 PO; +CHLO1LIQ PO; +DULO30CA2 PO; +FURO-92 PO; +OXYC15TA PO; +POSA100T PO; +PREG50CA PO; +VIT1CAPS42 PO
--- NOTE | 2019-08-15 03:00 | NUR ---
PT BIB [facility] FROM HOME WHERE NOTICED FEVER, NAUSEA AND CHANGE IN MENTAL STATUS ONSET 2300 LAST NIGHT. T MAX AT HOME WAS 103F. PT HAS HX OF MULTIPLE INFECTIONS AND SEPSIS, STEM CELL TRANSPLANT, CHRONIC PAIN, STAGE II KIDNEY FAILURE, HTN. PT WAS TREATED WITH 500ML NS AND 4MG ZOFRAN EN ROUTE. ARRIVES TO ED A&OX1, CONVERSES APPROPRIATELY AT TIMES BUT FATIGUED/CONFUSED. HR 100s ST, BP ELEVATED 170s/100s. SEPSIS PROTOCOL INITIATED.
--- NOTE | 2019-08-15 03:10 | NUR ---
ERP AT BS. AT BS. Addendum: 08/15/19 at 0453 by HBENSON PT C/O LOWER ABD PAIN.
[2019-08-15 03:30] LABS: MEAN CORPUSCULAR HEMOGLOBIN 33.7 pg (27.5-34.5); MEAN CORPUSCULAR HGB CONC 32.9 g/dL (33.2-36.2); MEAN CORPUSCULAR VOLUME 102.3 fL (81-97); PLATELET COUNT 197 x10^3/uL (130-400); RED BLOOD COUNT 3.86 x10^6/uL (4.38-5.82); RED CELL DISTRIBUTION WIDTH 16.5 % (9.4-14.8)
[2019-08-15] MEDS ORDERED: CEFTRIAXONE PMX 1GM/50ML 50 ML IV ONE (03:30)
[2019-08-15 03:31] LABS: MD YES
[2019-08-15] MEDS ORDERED: CEFTRIAXONE PMX 1GM/50ML 50 ML ONE (03:32)
[2019-08-15 03:38] LABS: ALANINE AMINOTRANSFERASE 417 U/L (12-78); ANION GAP 5 mmol/L (5-15); CHLORIDE 107 mmol/L (98-107); CREATININE 1.16 mg/dL (0.7-1.3)
[2019-08-15 03:41] LABS: ANISOCYTOSIS 1+; BAND#(MANUAL) 0.39 x10^3/uL; BANDS%(MANUAL) 8 % (0-7); LYMPH#(MANUAL) 0.54 x10^3/uL (1-3.4); LYMPHS% (MANUAL) 11 % (22-44); MONOS#(MANUAL) 0.39 x10^3/uL (0.3-2.7); MONOS% (MANUAL) 8 % (2-9); SEG#(MANUAL) 3.58 x10^3/uL (1.8-6.8); SEGS% (MANUAL) 73 % (42-75)
[2019-08-15 03:42] LABS: <PLATELET ESTIMATE> ADEQUATE; <PLT MORPHOLOGY> NORMAL PLT MORPH
[2019-08-15 03:43] LABS: ALKALINE PHOSPHATASE 515 U/L (45-117); BILIRUBIN,TOTAL 0.9 mg/dL (0.2-1.0); TOTAL PROTEIN 6.1 g/dL (6.4-8.2); TROPONIN I < 0.015 ng/mL (0.000-0.045)
[2019-08-15 03:51] LABS: RAPID INFLUENZA A Negative (Negative); RAPID INFLUENZA B Negative (Negative)
--- NOTE | 2019-08-15 03:59 | NUR ---
PT REFUSED STRAIGHT CATH. ASSISTED PT UP TO SIDE OF BED TO COLLECT CLEAN CATCH SPECIMEN. NEW BRIEF PROVIDED FOR INCONTINENCE. PT TO CT VIA NIGEL AT THIS TIME.
[2019-08-15] MEDS ORDERED: HYDR2TAB29 PO (04:09)
[2019-08-15] MEDS ORDERED: ACET-1600 PO (04:11)
[2019-08-15] MEDS ORDERED: LOSA25TA25 PO (04:12)
[2019-08-15] MEDS ORDERED: FURO-92 PO (04:13)
[2019-08-15] MEDS ORDERED: FURO40TA6 PO (04:14)
[2019-08-15 04:30] LABS: MICROSCOPIC AUTO
[2019-08-15 04:33] LABS: CULTURE INDICATED? NO
--- NOTE | 2019-08-15 05:10 | NUR ---
US TECH AT BS.
--- NOTE | 2019-08-15 06:19 | NUR ---
ERP AT FOR RECHECK.
[2019-08-15 08:10] VITALS: BP 147/72
[2019-08-15] MEDS ORDERED: BISACODYL 10 MG SUPP PR PRN (10:00)
[2019-08-15] MEDS ORDERED: POLYETHYLENE GLYCOL 17 GM PACKET PO PRN (10:00)
[2019-08-15] MEDS ORDERED: DOCUSATE 100 MG CAPSULE PO PRN (10:00)
[2019-08-15] MEDS ORDERED: TEMPLATE NON-FORMULARY MED. (Butalbital/Aspirin/Caffeine** (Fiorinal 50-325-40 Mg Capsule HOMEMEDPO PRN (10:00)
[2019-08-15] MEDS ORDERED: [UNRECOGNIZED DRUG - REMARK] XX PRN (10:00)
[2019-08-15 10:15] LABS: IRON LEVEL 142 mcg/dL (65-175)
[2019-08-15 10:18] LABS: % IRON SATURATION 70 % (20-55); TOTAL IRON BINDING CAPACITY 204 mcg/dL (250-450)
[2019-08-15] MEDS: HYDROmorphone 2 MG/ML, 1ML IVPush PRN ×4 (10:22→19:41)
[2019-08-15] MEDS: PIPERACILLIN/TAZO/PMX 3.375GM 50 ML IV SCH ×3 (10:36→21:14)
[2019-08-15] MEDS: SODIUM CHLORIDE 0.9% 1,000 ML IV SCH ×2 (10:37→23:00)
[2019-08-15] MEDS: LINEZOLID PMX 600MG/300ML 300 ML IV SCH ×2 (11:14→23:36)
[2019-08-15] MEDS: ENOXAPARIN 40 MG/0.4 ML SQ SCH (13:57)
[2019-08-15 14:00] VITALS: BP 193/102
[2019-08-15] MEDS ORDERED: LOSARTAN 50MG TABLET ONE (15:02)
[2019-08-15] MEDS: LOSARTAN 50MG TABLET PO SCH (15:05)
[2019-08-15 18:30] VITALS: BP 158/106
[2019-08-15] MEDS ORDERED: HYDROmorphone 1 MG/ML, 1ML VIAL ONE (19:37)
[2019-08-15] MEDS ORDERED: ACYCLOVIR 400 MG TABLET PO SCH (21:00)
[2019-08-15 22:22] VITALS: BP 140/74
[2019-08-16 01:11] VITALS: BP 141/74
[2019-08-16] MEDS ORDERED: HYDROmorphone 1 MG/ML, 1ML VIAL ONE ×2 (01:24→05:09)
[2019-08-16] MEDS: HYDROmorphone 2 MG/ML, 1ML IVPush PRN ×2 (01:28→05:10)
[2019-08-16] MEDS: PIPERACILLIN/TAZO/PMX 3.375GM 50 ML IV SCH ×4 (03:55→21:44)
[2019-08-16 04:54] LABS: ALBUMIN 2.4 g/dL (3.4-5.0); ANION GAP 4 mmol/L (5-15); CALCIUM 8.1 mg/dL (8.5-10.1); CHLORIDE 107 mmol/L (98-107)
[2019-08-16 04:55] LABS: BASOPHILS # (AUTO) 0.02 x10^3/uL (0-0.1); BASOPHILS % (AUTO) 1 % (0-1); EOSINOPHILS # (AUTO) 0.07 x10^3/uL (0-0.4); EOSINOPHILS % (AUTO) 2 % (1-7); LYMPHOCYTES # (AUTO) 1.57 x10^3/uL (1-3.4); LYMPHOCYTES % (AUTO) 35 % (22-44); MD NO; MEAN CORPUSCULAR HEMOGLOBIN 35.3 pg (27.5-34.5); MEAN CORPUSCULAR HGB CONC 34.4 g/dL (33.2-36.2); MEAN CORPUSCULAR VOLUME 102.7 fL (81-97); MEAN PLATELET VOLUME 6.4 fL (7.4-10.4); MONOCYTES # (AUTO) 0.34 x10^3/uL (0.2-0.8); MONOCYTES % (AUTO) 8 % (2-9); NEUTROPHILS % (AUTO) 56 % (42-75); PLATELET COUNT 173 x10^3/uL (130-400); RED BLOOD COUNT 3.28 x10^6/uL (4.38-5.82); RED CELL DISTRIBUTION WIDTH 15.9 % (9.4-14.8)
[2019-08-16 05:23] LABS: ALANINE AMINOTRANSFERASE 204 U/L (12-78); ALKALINE PHOSPHATASE 356 U/L (45-117); BILIRUBIN,TOTAL 0.9 mg/dL (0.2-1.0); CREATININE 1.01 mg/dL (0.7-1.3); TOTAL PROTEIN 5.2 g/dL (6.4-8.2)
[2019-08-16 07:38] VITALS: BP 154/84
[2019-08-16] MEDS: SODIUM CHLORIDE 0.9% 1,000 ML IV SCH ×2 (09:00→13:10)
[2019-08-16] MEDS ORDERED: ATOVAQUONE 150 MG/ML PO SCH (09:00)
[2019-08-16] MEDS ORDERED: LOSARTAN 50MG TABLET PO SCH (09:00)
[2019-08-16] MEDS: ENOXAPARIN 40 MG/0.4 ML SQ SCH (09:12)
[2019-08-16] MEDS: LOSARTAN 50MG TABLET PO SCH (09:12)
[2019-08-16] MEDS: ASPIRIN 81 MG TABLET EC PO SCH (09:12)
[2019-08-16] MEDS: DEXAMETHASONE 0.5 MG/5 ML ORAL SOL PO SCH (09:13)
[2019-08-16] MEDS: HYDROmorphone 2MG TABLET PO PRN ×4 (11:44→23:40)
[2019-08-16 12:40] VITALS: BP 152/96
[2019-08-16] MEDS: LINEZOLID PMX 600MG/300ML 300 ML IV SCH (13:09)
[2019-08-16 19:39] VITALS: BP 138/86
[2019-08-16] MEDS: ONDANSETRON 2MG/ML, 2ML IVPush PRN (19:50)
[2019-08-17] MEDS: LINEZOLID PMX 600MG/300ML 300 ML IV SCH (01:17)
[2019-08-17] MEDS: SODIUM CHLORIDE 0.9% 1,000 ML IV SCH ×2 (03:20→05:32)
[2019-08-17] MEDS: PIPERACILLIN/TAZO/PMX 3.375GM 50 ML IV SCH (03:20)
[2019-08-17 03:22] VITALS: BP 141/89
[2019-08-17] MEDS: HYDROmorphone 2MG TABLET PO PRN ×4 (04:04→20:05)
[2019-08-17 07:47] VITALS: BP 175/91
[2019-08-17 08:43] LABS: MEAN CORPUSCULAR HEMOGLOBIN 33.9 pg (27.5-34.5); MEAN CORPUSCULAR HGB CONC 33.7 g/dL (33.2-36.2); MEAN CORPUSCULAR VOLUME 100.7 fL (81-97); MEAN PLATELET VOLUME 6.1 fL (7.4-10.4); PLATELET COUNT 178 x10^3/uL (130-400); RED BLOOD COUNT 3.85 x10^6/uL (4.38-5.82); RED CELL DISTRIBUTION WIDTH 16.3 % (9.4-14.8)
[2019-08-17 08:46] LABS: ALANINE AMINOTRANSFERASE 151 U/L (12-78); ALBUMIN 2.8 g/dL (3.4-5.0); ANION GAP 4 mmol/L (5-15); CALCIUM 8.4 mg/dL (8.5-10.1); CHLORIDE 111 mmol/L (98-107); CREATININE 1.24 mg/dL (0.7-1.3)
[2019-08-17 08:48] LABS: ALKALINE PHOSPHATASE 343 U/L (45-117); BILIRUBIN,TOTAL 0.7 mg/dL (0.2-1.0); TOTAL PROTEIN 5.9 g/dL (6.4-8.2)
[2019-08-17] MEDS: LOSARTAN 50MG TABLET PO SCH (08:51)
[2019-08-17] MEDS: ASPIRIN 81 MG TABLET EC PO SCH (08:51)
[2019-08-17] MEDS: DEXAMETHASONE 0.5 MG/5 ML ORAL SOL PO SCH (08:51)
[2019-08-17 09:28] VITALS: BP 158/105
[2019-08-17 09:28] LABS: BASOPHILS # (AUTO) 0.03 x10^3/uL (0-0.1); BASOPHILS % (AUTO) 1 % (0-1); EOSINOPHILS # (AUTO) 0.04 x10^3/uL (0-0.4); EOSINOPHILS % (AUTO) 1 % (1-7); LYMPHOCYTES # (AUTO) 1.39 x10^3/uL (1-3.4); LYMPHOCYTES % (AUTO) 28 % (22-44); MD NO; MONOCYTES # (AUTO) 0.33 x10^3/uL (0.2-0.8); MONOCYTES % (AUTO) 7 % (2-9); NEUTROPHILS # (AUTO) 3.23 x10^3/uL (1.8-6.8); NEUTROPHILS % (AUTO) 64 % (42-75)
[2019-08-17] MEDS ORDERED: POTASSIUM CHLORIDE 20 MEQ TAB.ER.PRT PO ONE (10:30)
[2019-08-17] MEDS: ENOXAPARIN 40 MG/0.4 ML SQ SCH (10:37)
[2019-08-17] MEDS: CALCIUM/VITAMIN D3 250-125 TABLET PO SCH (10:58)
[2019-08-17] MEDS ORDERED: ATOVAQUONE 150 MG/ML PO SCH (12:00)
[2019-08-17] MEDS: ACYCLOVIR 200 MG CAPSULE PO SCH ×2 (13:41→20:05)
[2019-08-17] MEDS: ONDANSETRON 2MG/ML, 2ML IVPush PRN (13:45)
[2019-08-17 14:26] VITALS: BP_SYST 152; BP_SYST 157; BP_DIAS 104
[2019-08-17] MEDS ORDERED: FUROSEMIDE 20 MG TABLET PO ONE (16:30)
[2019-08-17] MEDS ORDERED: ATOVAQUONE 150 MG/ML HOMEMEDPO SCH (17:00)
[2019-08-17 19:25] VITALS: BP 187/105
[2019-08-17 21:30] LABS: CLOSTRIDIUM DIFFICILE ANTIGEN POSITIVE; CLOSTRIDIUM DIFFICILE TOXIN NEGATIVE (Negative)
[2019-08-17] MEDS ORDERED: hydrALAzine 20 MG/ML, 1ML IV ONE (22:00)
[2019-08-18] MEDS: HYDROmorphone 2MG TABLET PO PRN ×5 (00:10→21:19)
[2019-08-18 02:04] VITALS: BP 168/99
[2019-08-18] MEDS: ONDANSETRON 2MG/ML, 2ML IVPush PRN ×2 (04:14→12:14)
[2019-08-18 05:18] LABS: BASOPHILS # (AUTO) 0.02 x10^3/uL (0-0.1); BASOPHILS % (AUTO) 0 % (0-1); EOSINOPHILS # (AUTO) 0.07 x10^3/uL (0-0.4); EOSINOPHILS % (AUTO) 1 % (1-7); LYMPHOCYTES % (AUTO) 30 % (22-44); MD NO; MEAN CORPUSCULAR HEMOGLOBIN 34.4 pg (27.5-34.5); MEAN CORPUSCULAR HGB CONC 33.3 g/dL (33.2-36.2); MEAN CORPUSCULAR VOLUME 103.3 fL (81-97); MEAN PLATELET VOLUME 6.2 fL (7.4-10.4); MONOCYTES # (AUTO) 0.51 x10^3/uL (0.2-0.8); MONOCYTES % (AUTO) 10 % (2-9); NEUTROPHILS # (AUTO) 2.94 x10^3/uL (1.8-6.8); NEUTROPHILS % (AUTO) 59 % (42-75); PLATELET COUNT 186 x10^3/uL (130-400); RED BLOOD COUNT 3.45 x10^6/uL (4.38-5.82); RED CELL DISTRIBUTION WIDTH 16.2 % (9.4-14.8)
[2019-08-18 05:28] LABS: ALANINE AMINOTRANSFERASE 112 U/L (12-78); ALBUMIN 2.6 g/dL (3.4-5.0); ANION GAP 5 mmol/L (5-15); CALCIUM 8.2 mg/dL (8.5-10.1); CHLORIDE 111 mmol/L (98-107)
[2019-08-18 05:31] LABS: ALKALINE PHOSPHATASE 287 U/L (45-117); BILIRUBIN,TOTAL 0.7 mg/dL (0.2-1.0); CREATININE 0.88 mg/dL (0.7-1.3); TOTAL PROTEIN 5.3 g/dL (6.4-8.2)
[2019-08-18 06:35] VITALS: BP 177/113
[2019-08-18] MEDS ORDERED: ACETAMINOPHEN 325 MG TABLET ONE (06:42)
[2019-08-18] MEDS ORDERED: AMLODIPINE 5 MG TABLET ONE (06:42)
[2019-08-18] MEDS: ACETAMINOPHEN 325 MG TABLET PO PRN ×2 (06:45→22:12)
[2019-08-18] MEDS ORDERED: HYDROmorphone 2 MG/ML, 1ML IVPush ONE (07:00)
[2019-08-18] MEDS ORDERED: POTASSIUM CHLORIDE 20 MEQ TAB.ER.PRT PO ONE (07:30)
[2019-08-18 08:31] VITALS: BP 168/104
[2019-08-18] MEDS ORDERED: hydrALAzine 20 MG/ML, 1ML ONE (08:40)
[2019-08-18] MEDS: CALCIUM/VITAMIN D3 250-125 TABLET PO SCH (08:49)
[2019-08-18] MEDS: LOSARTAN 50MG TABLET PO SCH (08:49)
[2019-08-18] MEDS: DEXAMETHASONE 0.5 MG/5 ML ORAL SOL PO SCH (08:50)
[2019-08-18] MEDS: ACYCLOVIR 200 MG CAPSULE PO SCH ×2 (08:50→20:28)
[2019-08-18] MEDS: ASPIRIN 81 MG TABLET EC PO SCH (08:52)
[2019-08-18] MEDS ORDERED: AMLODIPINE 5 MG TABLET PO SCH (09:00)
[2019-08-18] MEDS ORDERED: hydrALAzine 20 MG/ML, 1ML IV ONE (09:00)
[2019-08-18] MEDS ORDERED: AMLODIPINE 5 MG TABLET PO STA (10:24)
[2019-08-18] MEDS: ENOXAPARIN 40 MG/0.4 ML SQ SCH (11:37)
[2019-08-18 13:18] VITALS: BP 160/101
[2019-08-18] MEDS: ATOVAQUONE 150 MG/ML PO SCH (17:00)
[2019-08-18 19:03] VITALS: BP 149/100
[2019-08-18] MEDS ORDERED: VANCOMYCIN 50 MG/ML ORAL SUSP PO SCH (20:00)
[2019-08-18] MEDS: metroNIDAZOLE 500 MG TABLET PO SCH (21:18)
[2019-08-19] VITALS (20 sets, daily range): BP systolic 139–184; BP diastolic 74–105
[2019-08-19] MEDS: HYDROmorphone 2MG TABLET PO PRN ×4 (01:04→14:03)
[2019-08-19] MEDS ORDERED: hydrALAzine 20 MG/ML, 1ML ONE (01:18)
[2019-08-19] MEDS ORDERED: hydrALAzine 20 MG/ML, 1ML IV ONE (01:30)
[2019-08-19] MEDS: ONDANSETRON 2MG/ML, 2ML IVPush PRN ×2 (01:56→07:38)
[2019-08-19] MEDS: ACETAMINOPHEN 325 MG TABLET PO PRN ×4 (02:20→19:36)
[2019-08-19] MEDS ORDERED: LABETALOL 5 MG/ML SYR. (IV ONLY) IVPush ONE (02:30)
[2019-08-19] MEDS ORDERED: HYDROmorphone 1 MG/ML, 1ML INJ IV ONE (04:30)
[2019-08-19] MEDS ORDERED: HYDROmorphone 2 MG/ML, 1ML IV ONE (04:30)
[2019-08-19] MEDS: hydrALAzine 20 MG/ML, 1ML IV PRN (07:40)
[2019-08-19] MEDS ORDERED: BUTALB/APAP/CAFFEINE 50MG/325MG/40MG ONE (08:17)
[2019-08-19] MEDS: LOSARTAN 50MG TABLET PO SCH (08:23)
[2019-08-19] MEDS: CALCIUM/VITAMIN D3 250-125 TABLET PO SCH (08:25)
[2019-08-19] MEDS: ASPIRIN 81 MG TABLET EC PO SCH (08:25)
[2019-08-19] MEDS: metroNIDAZOLE 500 MG TABLET PO SCH ×3 (08:25→21:51)
[2019-08-19] MEDS: ACYCLOVIR 200 MG CAPSULE PO SCH ×2 (08:26→21:51)
[2019-08-19] MEDS: AMLODIPINE 5 MG TABLET PO SCH (08:26)
[2019-08-19] MEDS: ENOXAPARIN 40 MG/0.4 ML SQ SCH (08:27)
[2019-08-19] MEDS: DEXAMETHASONE 0.5 MG/5 ML ORAL SOL PO SCH (08:32)
[2019-08-19 09:04] LABS: BASOPHILS # (AUTO) 0.02 x10^3/uL (0-0.1); BASOPHILS % (AUTO) 0 % (0-1); EOSINOPHILS # (AUTO) 0.01 x10^3/uL (0-0.4); EOSINOPHILS % (AUTO) 0 % (1-7); LYMPHOCYTES # (AUTO) 1.02 x10^3/uL (1-3.4); LYMPHOCYTES % (AUTO) 19 % (22-44); MD NO; MEAN CORPUSCULAR HEMOGLOBIN 33.8 pg (27.5-34.5); MEAN CORPUSCULAR HGB CONC 33.5 g/dL (33.2-36.2); MEAN CORPUSCULAR VOLUME 100.7 fL (81-97); MEAN PLATELET VOLUME 5.9 fL (7.4-10.4); MONOCYTES # (AUTO) 0.34 x10^3/uL (0.2-0.8); MONOCYTES % (AUTO) 6 % (2-9); NEUTROPHILS # (AUTO) 4.11 x10^3/uL (1.8-6.8); NEUTROPHILS % (AUTO) 75 % (42-75); PLATELET COUNT 186 x10^3/uL (130-400); RED BLOOD COUNT 4.04 x10^6/uL (4.38-5.82)
[2019-08-19 09:09] LABS: ALANINE AMINOTRANSFERASE 103 U/L (12-78); ALBUMIN 3.4 g/dL (3.4-5.0); ANION GAP 5 mmol/L (5-15); CHLORIDE 105 mmol/L (98-107); CREATININE 0.98 mg/dL (0.7-1.3)
[2019-08-19 09:11] LABS: ALKALINE PHOSPHATASE 337 U/L (45-117); BILIRUBIN,TOTAL 0.7 mg/dL (0.2-1.0); TOTAL PROTEIN 6.4 g/dL (6.4-8.2)
[2019-08-19] MEDS ORDERED: BUTALB/APAP/CAFFEINE 50MG/325MG/40MG PO PRN (10:00)
[2019-08-19] MEDS: BUTALB/APAP/CAFFEINE 50MG/325MG/40MG PO PRN ×2 (11:08→19:35)
[2019-08-19] MEDS ORDERED: cloniDINE 0.1MG PATCH TD SCH (15:00)
[2019-08-19] MEDS: ATOVAQUONE 150 MG/ML PO SCH (16:01)
[2019-08-19] MEDS: VALPROATE SODIUM 500 MG in SODIUM CHLORIDE 0.9% 100 ML IV SCH ×2 (16:37→23:09)
[2019-08-20] VITALS (7 sets, daily range): BP systolic 144–186; BP diastolic 85–119
[2019-08-20] MEDS: hydrALAzine 20 MG/ML, 1ML IV PRN (07:32)
[2019-08-20] MEDS ORDERED: VALPROATE SODIUM 500 MG in SODIUM CHLORIDE 0.9% 100 ML IV SCH (08:00)
[2019-08-20] MEDS: ENOXAPARIN 40 MG/0.4 ML SQ SCH (08:31)
[2019-08-20] MEDS: LOSARTAN 50MG TABLET PO SCH (08:32)
[2019-08-20] MEDS: AMLODIPINE 5 MG TABLET PO SCH (08:32)
[2019-08-20] MEDS: ASPIRIN 81 MG TABLET EC PO SCH (08:33)
[2019-08-20] MEDS: BUTALB/APAP/CAFFEINE 50MG/325MG/40MG PO PRN ×2 (08:33→15:55)
[2019-08-20] MEDS: metroNIDAZOLE 500 MG TABLET PO SCH ×3 (08:33→20:02)
[2019-08-20] MEDS: ACYCLOVIR 200 MG CAPSULE PO SCH ×2 (08:33→20:03)
[2019-08-20] MEDS: HYDROmorphone 2MG TABLET PO PRN ×3 (08:33→20:03)
[2019-08-20] MEDS: CALCIUM/VITAMIN D3 250-125 TABLET PO SCH (08:33)
[2019-08-20] MEDS: ACETAMINOPHEN 325 MG TABLET PO PRN ×2 (08:33→20:03)
[2019-08-20] MEDS: DEXAMETHASONE 0.5 MG/5 ML ORAL SOL PO SCH (09:08)
[2019-08-20] MEDS ORDERED: SUMATRIPTAN 6MG/0.5ML SQ PRN (10:00)
[2019-08-20] MEDS: VALPROATE SODIUM 500 MG in SODIUM CHLORIDE 0.9% 100 ML IV SCH (12:57)
[2019-08-20] MEDS: ATOVAQUONE 150 MG/ML PO SCH (17:09)
[2019-08-20] MEDS: ONDANSETRON 2MG/ML, 2ML IVPush PRN (20:03)
[2019-08-20] MEDS ORDERED: AMITRIPTYLINE 10 MG TABLET PO SCH (21:00)
[2019-08-20] MEDS ORDERED: METOPROLOL SUCCINATE 25 MG TAB.ER.24H PO SCH (21:00)
[2019-08-21] VITALS (9 sets, daily range): BP systolic 123–177; BP diastolic 65–117
[2019-08-21] MEDS: VALPROATE SODIUM 500 MG in SODIUM CHLORIDE 0.9% 100 ML IV SCH ×2 (00:10→13:29)
[2019-08-21] MEDS: BUTALB/APAP/CAFFEINE 50MG/325MG/40MG PO PRN ×4 (00:10→17:32)
[2019-08-21] MEDS: HYDROmorphone 2MG TABLET PO PRN ×4 (00:10→17:32)
[2019-08-21] MEDS: metroNIDAZOLE 500 MG TABLET PO SCH ×2 (07:54→17:32)
[2019-08-21] MEDS: CALCIUM/VITAMIN D3 250-125 TABLET PO SCH (07:55)
[2019-08-21] MEDS: ASPIRIN 81 MG TABLET EC PO SCH (07:55)
[2019-08-21] MEDS: ACYCLOVIR 200 MG CAPSULE PO SCH (07:55)
[2019-08-21] MEDS: DEXAMETHASONE 0.5 MG/5 ML ORAL SOL PO SCH (07:55)
[2019-08-21] MEDS: AMLODIPINE 5 MG TABLET PO SCH (07:55)
[2019-08-21] MEDS: LOSARTAN 50MG TABLET PO SCH (07:55)
[2019-08-21] MEDS: ONDANSETRON 2MG/ML, 2ML IVPush PRN (10:41)
[2019-08-21] MEDS: ENOXAPARIN 40 MG/0.4 ML SQ SCH (10:41)
[2019-08-21] MEDS ORDERED: AMIT10TA PO (16:57)
[2019-08-21] MEDS ORDERED: METR500T PO (16:57)
[2019-08-21] MEDS ORDERED: CLON1PAT2 TD (16:57)
[2019-08-21] MEDS ORDERED: METO25TA91 PO (16:57)
[2019-08-21] MEDS ORDERED: CALC1TAB68 PO (16:57)
[2019-08-21] MEDS ORDERED: AMLO-150 PO (16:57)
[2019-08-21] MEDS ORDERED: CLON0.1T22 PO (16:57)
[2019-08-21] MEDS ORDERED: BUTA-177 PO (16:57)
[2019-08-21] MEDS: ATOVAQUONE 150 MG/ML PO SCH (17:33)
== END 2019-08-21 18:35 | disposition home or self-care (01) | DRG 871 ==
LOC: ED 03:09 → EDIP 07:11 → 3N 07:48 → 4NW 15:33
PROVIDERS: ADMIT Internal Medicine; ATTEND Internal Medicine
PROC: 0T9B70Z Drainage of Bladder with Drainage Device, Via Natural or Artificial Opening (ICD-10-PCS; principal; 2019-08-15)
DX: A41.9 Sepsis, unspecified organism (principal); G93.41 Metabolic encephalopathy; K83.1 Obstruction of bile duct; Z94.81 Bone marrow transplant status; D61.9 Aplastic anemia, unspecified; A04.72 Enterocolitis due to Clostridium difficile, not specified as recurrent; D46.9 Myelodysplastic syndrome, unspecified; D53.9 Nutritional anemia, unspecified; G43.901 Migraine, unspecified, not intractable, with status migrainosus; I12.9 Hypertensive chronic kidney disease with stage 1 through stage 4 chronic kidney disease, or unspecified chronic kidney disease; M19.90 Unspecified osteoarthritis, unspecified site; N18.3 Chronic kidney disease, stage 3 (moderate); Z66 Do not resuscitate; Z86.73 Personal history of transient ischemic attack (TIA), and cerebral infarction without residual deficits; Z87.891 Personal history of nicotine dependence; Z87.11 Personal history of peptic ulcer disease; Z88.1 Allergy status to other antibiotic agents; Z90.49 Acquired absence of other specified parts of digestive tract; Z91.010 Allergy to peanuts
CPT/HCPCS: 36415; 70450; 71045; 71046; 76700; 80053; 80074; 81001; 82306; 82550; 82607; 83540; 83550; 83605; 83735; 84100; 84145; 84443; 84484; 85025; 86361; 87040; 87324; 87400; 87493; 93005; 93975; 96365; 96375; 99285; G0378; J0696; J1170; J1650; J2020; J2405; J2543; J0360; J7030

== ENCOUNTER → 2020-06-11 | Outpatient (CLI) | payer MEDICARE, BC ==
[~2020-06-11] MED LIST changes: +ACET-1600 PO; +AMIT10TA PO; +AMLO-150 PO; +BUTA-177 PO; +CALC1TAB68 PO; +CLON0.1T22 PO; +CLON1PAT2 TD; +FURO40TA6 PO; -ISAV186C PO; +ISAV186C2 PO; +LOSA25TA25 PO; +METO25TA91 PO; +METR500T PO; -OXYC15TA PO; +OXYC15TA3 PO
== END | disposition home or self-care (01) ==
LOC: LAB 10:15
PROVIDERS: ATTEND Family Medicine
DX: D46.9 Myelodysplastic syndrome, unspecified (principal); Z94.81 Bone marrow transplant status
CPT/HCPCS: 36415; 86355; 86359; 86360

== ENCOUNTER → 2020-10-25 | Outpatient (CLI) | payer MEDICARE, BC ==
[~2020-10-25] MED LIST changes: -ALEN70TA6 PO; +ALEN70TA77 PO; +AMLO-211 PO; -AMLO10TA8 PO
== END | disposition home or self-care (01) ==
LOC: CFH 10:59
PROVIDERS: ATTEND Family Medicine
DX: M81.0 Age-related osteoporosis without current pathological fracture (principal)
CPT/HCPCS: 77080